=== PATIENT | male | born 1940 | race Caucasian/White ===

== ENCOUNTER 2017-10-04 16:10 | Emergency (ER) | payer OTHER ==
[2017-10-04 17:00] LABS: Basophils % (A) 1 %; Eosinophils # (A) 0.4 k/uL (0-0.7); Eosinophils % (A) 6 %; HCT 39.8 % (39.0-53.0); HGB 13.2 gm/dL (13.0-17.5); Lymphocytes # (A) 1.4 k/uL (1.0-4.8); Lymphocytes % (A) 21 %; MCH 29.7 pg (25.0-35.0); MCHC 33.3 g/dL (31.0-37.0); MCV 89.3 fL (80.0-100.0); Monocytes # (A) 0.4 k/uL (0-1.0); Monocytes % (A) 6 %; Neutrophils # (A) 4.5 k/uL (1.3-7.7); Neutrophils % (A) 66 %; Platelet Count 184 k/uL (150-450); RBC 4.46 m/uL (4.30-5.90); RDW 13.8 % (11.5-15.5); WBC 6.8 k/uL (3.8-10.6)
[2017-10-04 17:08] LABS: Albumin 4.3 g/dL (3.5-5.0); Calcium 9.4 mg/dL (8.4-10.2); Potassium 5.2 mmol/L (3.5-5.1); Total Bilirubin 0.4 mg/dL (0.2-1.3); Total Protein 6.6 g/dL (6.3-8.2)
[2017-10-04 17:09] LABS: Partial Thromboplastin Time 23.6 sec (22.0-30.0); Prothrombin Time 9.8 sec (9.0-12.0)
[2017-10-04 17:11] LABS: Creatine Kinase 109 U/L (55-170)
[2017-10-04 17:23] LABS: Troponin I <0.012 ng/mL (0.000-0.034)
[2017-10-04] MEDS ORDERED: SODIUM CHLORIDE 0.9% 1,000 ML IV STA (17:47)
--- NOTE | 2017-10-04 18:21 | ED ---
General Adult HPI - General Chief complaint: Dizziness Stated complaint: NEAR SYNOPAL EPISODE, HEART Hx Time Seen by Provider: 10/04/17 17:19 Source: patient, RN notes reviewed, old records reviewed Mode of arrival: wheelchair Limitations: no limitations - History of Present Illness Initial comments: This is a 76-year-old male to the ER for evaluation, he presents today for evaluation regarding dizziness. Weakness. Patient was doing some work today while at work than normal. He was walking up hill. Really became very lightheaded and dizzy. Patient admits to being watery is decreased adequate hydration. He denies headache chest pain shortness breath or abdominal pain. At this point patient states his symptoms are completely resolved - Related Data Home Medications Medication Instructions Recorded Confirmed Aspirin 81 mg PO DAILY 12/26/13 12/26/13 Carvedilol [Coreg*] 12.5 mg PO BID 12/26/13 12/26/13 Cholecalciferol [Vitamin D3] 1 tab PO DAILY 12/26/13 12/26/13 Furosemide [Lasix] 40 mg PO DAILY 12/26/13 12/26/13 Lisinopril [Zestril] 20 mg PO DAILY 12/26/13 12/26/13 Nitroglycerin Sl Tabs [Nitrostat] 1 tab SL DIRECTED PRN 12/26/13 12/26/13 Rosuvastatin Calcium [Crestor] 2.5 mg PO DAILY 12/26/13 12/26/13 amLODIPine [Norvasc] 5 mg PO DAILY 12/26/13 12/26/13 glipiZIDE [Glucotrol] 2.5 mg PO BID 12/26/13 12/26/13 Allergies Allergy/AdvReac Type Severity Reaction Status Date / Time No Known Allergies Allergy Verified 10/04/17 16:17 Review of Systems ROS Statement: Those systems with pertinent positive or pertinent negative responses have been documented in the HPI. ROS Other: All systems not noted in ROS Statement are negative. Past Medical History Past Medical History: Diabetes Mellitus, Myocardial Infarction ([place]) Additional Past Medical History / Comment(s): neuropathy, right eye bleed History of Any Multi-Drug Resistant Organisms: None Reported Past Surgical History: Appendectomy, Coronary Bypass/CABG Additional Past Surgical History / Comment(s): right eye Past Psychological History: No Psychological Hx Reported Smoking Status: Former smoker Past Alcohol Use History: Occasional Past Drug Use History: None Reported General Exam Limitations: no limitations General appearance: alert, in no apparent distress Head exam: Present: atraumatic, normocephalic, normal inspection Eye exam: Present: normal appearance, PERRL, EOMI. Absent: scleral icterus, conjunctival injection, periorbital swelling ENT exam: Present: normal exam, mucous membranes dry Neck exam: Present: normal inspection. Absent: tenderness, meningismus, lymphadenopathy Respiratory exam: Present: normal lung sounds bilaterally. Absent: respiratory distress, wheezes, rales, rhonchi, stridor Cardiovascular Exam: Present: regular rate, normal rhythm, normal heart sounds. Absent: systolic murmur, diastolic murmur, rubs, gallop, clicks GI/Abdominal exam: Present: soft, normal bowel sounds. Absent: distended, tenderness, guarding, rebound, rigid Extremities exam: Present: normal inspection, full ROM, normal capillary refill. Absent: tenderness, pedal edema, joint swelling, calf tenderness Back exam: Present: normal inspection Neurological exam: Present: alert, oriented X3, CN II-XII intact Psychiatric exam: Present: normal affect, normal mood Skin exam: Present: warm, dry, intact, normal color. Absent: rash Course Vital Signs 10/04/17 10/04/17 16:14 17:27 Temperature 98.5 F Pulse Rate 67 61 Respiratory 20 18 Rate Blood Pressure 122/67 153/71 O2 Sat by Pulse 97 98 Oximetry - Reevaluation(s) Reevaluation #1: 10/04/17 18:20 Patient given fluid bolus, continues remain asymptomatic Medical Decision Making - Medical Decision Making 76 male the ER for evaluation near syncope, dehydration. Patient hydrated here in the ER and can be discharged home encouraged increased fluid intake - Lab Data Result diagrams: 10/04/17 16:42 10/04/17 16:42 Lab Results 10/04/17 10/04/17 10/04/17 Range/Units 16:42 16:42 16:42 WBC 6.8 (3.8-10.6) k/uL RBC 4.46 (4.30-5.90) m/uL Hgb 13.2 (13.0-17.5) gm/dL Hct 39.8 (39.0-53.0) % MCV 89.3 (80.0-100.0) fL MCH 29.7 (25.0-35.0) pg MCHC 33.3 (31.0-37.0) g/dL RDW 13.8 (11.5-15.5) % Plt Count 184 (150-450) k/uL Neutrophils % 66 % Lymphocytes % 21 % Monocytes % 6 % Eosinophils % 6 % Basophils % 1 % Neutrophils # 4.5 (1.3-7.7) k/uL Lymphocytes # 1.4 (1.0-4.8) k/uL Monocytes # 0.4 (0-1.0) k/uL Eosinophils # 0.4 (0-0.7) k/uL Basophils # 0.0 (0-0.2) k/uL PT (9.0-12.0) sec INR (<1.2) APTT (22.0-30.0) sec Sodium 143 (137-145) mmol/L Potassium 5.2 H (3.5-5.1) mmol/L Chloride 106 (98-107) mmol/L Carbon Dioxide 20 L (22-30) mmol/L Anion Gap 17 mmol/L BUN 74 H (9-20) mg/dL Creatinine 3.20 H (0.66-1.25) mg/dL Est GFR (CKD-EPI)AfAm 21 (>60 ml/min/1.73 sqM) Est GFR (CKD-EPI)NonAf 18 (>60 ml/min/1.73 sqM) Glucose 153 H (74-99) mg/dL Calcium 9.4 (8.4-10.2) mg/dL Total Bilirubin 0.4 (0.2-1.3) mg/dL AST 20 (17-59) U/L ALT 14 L (21-72) U/L Alkaline Phosphatase 65 (38-126) U/L Total Creatine Kinase 109 (55-170) U/L CK-MB (CK-2) 2.0 (0.0-2.4) ng/mL CK-MB (CK-2) Rel Index 1.8 Troponin I <0.012 (0.000-0.034) ng/mL Total Protein 6.6 (6.3-8.2) g/dL Albumin 4.3 (3.5-5.0) g/dL 05/10/18 Range/Units 16:42 WBC (3.8-10.6) k/uL RBC (4.30-5.90) m/uL Hgb (13.0-17.5) gm/dL Hct (39.0-53.0) % MCV (80.0-100.0) fL MCH (25.0-35.0) pg MCHC (31.0-37.0) g/dL RDW (11.5-15.5) % Plt Count (150-450) k/uL Neutrophils % % Lymphocytes % % Monocytes % % Eosinophils % % Basophils % % Neutrophils # (1.3-7.7) k/uL Lymphocytes # (1.0-4.8) k/uL Monocytes # (0-1.0) k/uL Eosinophils # (0-0.7) k/uL Basophils # (0-0.2) k/uL PT 9.8 (9.0-12.0) sec INR 1.0 (<1.2) APTT 23.6 (22.0-30.0) sec Sodium (137-145) mmol/L Potassium (3.5-5.1) mmol/L Chloride (98-107) mmol/L Carbon Dioxide (22-30) mmol/L Anion Gap mmol/L BUN (9-20) mg/dL Creatinine (0.66-1.25) mg/dL Est GFR (CKD-EPI)AfAm (>60 ml/min/1.73 sqM) Est GFR (CKD-EPI)NonAf (>60 ml/min/1.73 sqM) Glucose (74-99) mg/dL Calcium (8.4-10.2) mg/dL Total Bilirubin (0.2-1.3) mg/dL AST (17-59) U/L ALT (21-72) U/L Alkaline Phosphatase (38-126) U/L Total Creatine Kinase (55-170) U/L CK-MB (CK-2) (0.0-2.4) ng/mL CK-MB (CK-2) Rel Index Troponin I (0.000-0.034) ng/mL Total Protein (6.3-8.2) g/dL Albumin (3.5-5.0) g/dL Disposition Clinical Impression: Dehydration, Orthostatic hypotension Disposition: HOME SELF-CARE Condition: Good Instructions: Dizziness (ED), Dehydration (ED) Is patient prescribed a controlled substance at d/c from ED?: No Referrals: [facility],Clinic [Primary Care Provider] - 1-2 days
[2017-10-04] MEDS ORDERED: RX INFO: IV CONTRAST WAS GIVEN 1 EACH MISC MISCELLANE PRN (18:36)
[2017-10-04 19:09] VITALS: PULSE 58; RESP 19
--- NOTE | 2017-10-04 19:14 | XR ---
EXAMINATION TYPE: XR chest 2V DATE OF EXAM: 10/04/2017 COMPARISON: Chest x-ray December 26, 2013 HISTORY: Chest pain. Syncope and weakness. TECHNIQUE: Frontal and lateral views of the chest are obtained. FINDINGS: New sternal wires and mediastinal clips from CABG procedure are identified. There is chroni c parenchymal change without suspicious new focal air space opacity, pleural effusion, or pneumothora x seen. Some eventration right hemidiaphragm is redemonstrated. Patchy left basilar linear scarring a nd/or atelectasis is again seen. The cardiac silhouette size is upper limits of normal currently. T he osseous structures are intact. IMPRESSION: Chronic changes without acute pulmonary process.
[2017-10-04 20:24] VITALS: BP 160/77
--- NOTE | 2017-10-04 20:25 | NM ---
EXAMINATION TYPE: NM pul vent and perfuse DATE OF EXAM: 10/04/2017 COMPARISON: Chest x-ray from earlier today HISTORY: Chest pain TECHNIQUE: Utilizing inhalation of 65.1 mCi Tc 99m DTPA aerosol and intravenous injection of 5.27 mC i of Tc 99m MAA, ventilation and perfusion images are acquired post injection in multiple projections . FINDINGS: Normal radiotracer distribution is noted in the lungs. There is no evidence of mismatched defects. IMPRESSION: No scintigraphic evidence for acute pulmonary embolism.
[2017-10-04 20:26] VITALS: TEMP 97.5
== END 2017-10-04 21:08 | disposition home or self-care (01) ==
LOC: EC 16:10
DX: I95.1 Orthostatic hypotension (principal); E86.0 Dehydration; E11.40 Type 2 diabetes mellitus with diabetic neuropathy, unspecified; I25.2 Old myocardial infarction; Z87.891 Personal history of nicotine dependence; Z79.82 Long term (current) use of aspirin; Z79.84 Long term (current) use of oral hypoglycemic drugs; Z79.899 Other long term (current) drug therapy
CPT/HCPCS: 36415; 93005; 85379; 80053; 82550; 82553; 84484; 85025; 85610; 85730; 71046; 78582; 99284; 96360; A9540; A9567

== ENCOUNTER 2018-02-10 02:51 | Emergency (ER) | payer OTHER ==
[2018-02-10 02:57] VITALS: RESP 16
[2018-02-10] MEDS ORDERED: SODIUM CHLORIDE 0.9% 1,000 ML IV STA (03:07)
[2018-02-10] MEDS ORDERED: DICYCLOMINE 10 MG/ML 2 ML AMP IM STA (03:07)
[2018-02-10] MEDS ORDERED: ONDANSETRON 4 MG/2 ML VIAL IVP STA (03:07)
[2018-02-10 03:48] LABS: Basophils % (A) 0 %; Eosinophils # (A) 0.5 k/uL (0-0.7); Eosinophils % (A) 4 %; HCT 42.3 % (39.0-53.0); HGB 13.5 gm/dL (13.0-17.5); Lymphocytes # (A) 0.7 k/uL (1.0-4.8); Lymphocytes % (A) 6 %; MCH 29.7 pg (25.0-35.0); MCHC 31.8 g/dL (31.0-37.0); MCV 93.3 fL (80.0-100.0); Mean Platelet Volume 6.8; Monocytes # (A) 0.5 k/uL (0-1.0); Monocytes % (A) 4 %; Neutrophils # (A) 10.2 k/uL (1.3-7.7); Neutrophils % (A) 84 %; Platelet Count 204 k/uL (150-450); RBC 4.53 m/uL (4.30-5.90); RDW 13.8 % (11.5-15.5); WBC 12.1 k/uL (3.8-10.6)
--- NOTE | 2018-02-10 03:55 | XR ---
EXAMINATION TYPE: XR KUB DATE OF EXAM: 02/10/2018 COMPARISON: NONE HISTORY: Abdominal pain TECHNIQUE: 2 views FINDINGS: There is no sign of intestinal obstruction or pneumoperitoneum. Fecal pattern is normal. Th ere is no sign of a mass. Lung bases are clear. There are no pathologic calcifications over the kidne ys. IMPRESSION: Nonacute abdomen.
[2018-02-10 03:58] LABS: Albumin 4.3 g/dL (3.5-5.0); Calcium 9.5 mg/dL (8.4-10.2); Potassium 4.8 mmol/L (3.5-5.1); Total Bilirubin 0.7 mg/dL (0.2-1.3); Total Protein 6.9 g/dL (6.3-8.2)
[2018-02-10] MEDS ORDERED: SODIUM CHLORIDE 0.9% 500 ML IV ONE (04:06)
--- NOTE | 2018-02-10 04:08 | ED ---
Nausea/Vomiting/Diarrhea HPI - General Source: patient Mode of arrival: ambulatory Limitations: no limitations <Vicenta Rivera - Last Filed: 02/10/18 18:23> <Kristi Grant - Last Filed: 02/12/18 01:19> - General Chief complaint: Nausea/Vomiting/Diarrhea Stated complaint: poss food poisoning Time Seen by Provider: 02/10/18 03:01 - History of Present Illness Initial comments: 77-year-old male patient presents to the emergency department today for evaluation of vomiting and diarrhea. Patient states that symptoms started around 10 PM this evening. Patient states around 8 PM he did have dinner which included whitefish from a restaurant. Patient states that he has had several episodes of both vomiting and diarrhea since onset at 10. Denies any hematemesis, hematochezia, or melena. Patient states he has had some generalized abdominal cramping. Patient denies any fevers or chills. He denies any sick contacts or recent travel. Patient does have chronic kidney failure and was concerned that he may become dehydrated. Patient denies any recent rash, shortness breath, chest pain, back pain, numbness, tingling, dizziness, weakness, hematuria, dysuria, urinary urgency, urinary frequency, headache, visual changes, or any other complaints. (Vicenta Rivera) - Related Data Home Medications Medication Instructions Recorded Confirmed Aspirin 81 mg PO DAILY 12/26/13 12/26/13 Carvedilol [Coreg*] 12.5 mg PO BID 12/26/13 12/26/13 Cholecalciferol [Vitamin D3] 1 tab PO DAILY 12/26/13 12/26/13 Furosemide [Lasix] 40 mg PO DAILY 12/26/13 12/26/13 Lisinopril [Zestril] 20 mg PO DAILY 12/26/13 12/26/13 Nitroglycerin Sl Tabs [Nitrostat] 1 tab SL DIRECTED PRN 12/26/13 12/26/13 Rosuvastatin Calcium [Crestor] 2.5 mg PO DAILY 12/26/13 12/26/13 amLODIPine [Norvasc] 5 mg PO DAILY 12/26/13 12/26/13 glipiZIDE [Glucotrol] 2.5 mg PO BID 12/26/13 12/26/13 Previous Rx's Medication Instructions Recorded Ondansetron [Zofran ODT] 4 mg PO Q8HR PRN #10 tab 02/10/18 Allergies Allergy/AdvReac Type Severity Reaction Status Date / Time No Known Allergies Allergy Verified 02/10/18 02:57 Review of Systems ROS Other: All systems not noted in ROS Statement are negative. <Vicenta Rivera M - Last Filed: 02/10/18 18:23> ROS Other: All systems not noted in ROS Statement are negative. <Kristi Grant - Last Filed: 02/12/18 01:19> ROS Statement: Those systems with pertinent positive or pertinent negative responses have been documented in the HPI. Past Medical History Past Medical History: Diabetes Mellitus, Myocardial Infarction ([place]) Additional Past Medical History / Comment(s): neuropathy, right eye bleed History of Any Multi-Drug Resistant Organisms: None Reported Past Surgical History: Appendectomy, Coronary Bypass/CABG Additional Past Surgical History / Comment(s): right eye Past Psychological History: No Psychological Hx Reported Smoking Status: Former smoker Past Alcohol Use History: Occasional Past Drug Use History: None Reported <Vicenta Rivera M - Last Filed: 02/10/18 18:23> General Exam Limitations: no limitations General appearance: alert, in no apparent distress, other (This is a well- developed, well-nourished 77-year-old male patient no acute distress. Vital signs upon presentation are temperature 98.3F, pulse 69, respirations 16, blood pressure 134/68, pulse ox 98% on room air.) Eye exam: Present: normal appearance, PERRL, EOMI. Absent: scleral icterus, conjunctival injection, periorbital swelling ENT exam: Present: normal exam, normal oropharynx, mucous membranes moist Respiratory exam: Present: normal lung sounds bilaterally. Absent: respiratory distress, wheezes, rales, rhonchi, stridor Cardiovascular Exam: Present: regular rate, normal rhythm, normal heart sounds. Absent: systolic murmur, diastolic murmur, rubs, gallop, clicks GI/Abdominal exam: Present: soft, normal bowel sounds. Absent: distended, tenderness, guarding, rebound, rigid Neurological exam: Present: alert, oriented X3, CN II-XII intact Psychiatric exam: Present: normal affect, normal mood Skin exam: Present: warm, dry, intact, normal color. Absent: rash <Vicenta Rivera - Last Filed: 02/10/18 18:23> Vital Signs 02/10/18 02/10/18 02:55 05:00 Temperature 98.3 F 97.8 F Pulse Rate 69 70 Respiratory 16 16 Rate Blood Pressure 134/68 133/63 O2 Sat by Pulse 98 98 Oximetry Medical Decision Making - Lab Data Result diagrams: 02/10/18 03:40 02/10/18 03:40 - Radiology Data Radiology results: report reviewed, image reviewed <Vicenta Rivera - Last Filed: 02/10/18 18:23> - Lab Data Result diagrams: 02/10/18 03:40 02/10/18 03:40 <Kristi Grant - Last Filed: 02/12/18 01:19> - Medical Decision Making 77-year-old male patient presented to the emergency department today for a 4 hour history of vomiting and diarrhea. Physical examination was relatively unremarkable. Abdomen was soft and nontender. Patient denied any recent antibiotic use, recent travel, or sick contacts. Patient is concerned that he may have had bad food at a restaurant he was eating. Labs reviewed and did reveal an elevated BUN and creatinine, slightly above his normal range. Labs he has had here previously. He did receive Zofran and Pepcid while in the department, states he is feeling much better upon reevaluation. Did give patient 1500 mL of normal saline. We did discuss possibility of gastroenteritis versus food poisoning, felt to be more gastroenteritis as symptoms started only 2 hours after he had eaten. He is instructed to follow- up with his primary care physician to have repeat labs performed. Return parameters discussed in detail. He verbalizes understanding and agrees with this plan. (Vicenta Rivera) I was available for consultation in the emergency department. The history and physical exam were done by the midlevel provider. I was consulted for this patient's care. I reviewed the case with the midlevel provider and based on their presentation of the patient, I agree with the assessment, medical decision making and plan of care as documented. (Kristi Grant) - Lab Data Lab Results 02/10/18 02/10/18 Range/Units 03:40 03:40 WBC 12.1 H (3.8-10.6) k/uL RBC 4.53 (4.30-5.90) m/uL Hgb 13.5 (13.0-17.5) gm/dL Hct 42.3 (39.0-53.0) % MCV 93.3 (80.0-100.0) fL MCH 29.7 (25.0-35.0) pg MCHC 31.8 (31.0-37.0) g/dL RDW 13.8 (11.5-15.5) % Plt Count 204 (150-450) k/uL Neutrophils % 84 % Lymphocytes % 6 % Monocytes % 4 % Eosinophils % 4 % Basophils % 0 % Neutrophils # 10.2 H (1.3-7.7) k/uL Lymphocytes # 0.7 L (1.0-4.8) k/uL Monocytes # 0.5 (0-1.0) k/uL Eosinophils # 0.5 (0-0.7) k/uL Basophils # 0.0 (0-0.2) k/uL Sodium 143 (137-145) mmol/L Potassium 4.8 (3.5-5.1) mmol/L Chloride 105 (98-107) mmol/L Carbon Dioxide 25 (22-30) mmol/L Anion Gap 13 mmol/L BUN 80 H (9-20) mg/dL Creatinine 3.27 H (0.66-1.25) mg/dL Est GFR (CKD-EPI)AfAm 20 (>60 ml/min/1.73 sqM) Est GFR (CKD-EPI)NonAf 17 (>60 ml/min/1.73 sqM) Glucose 127 H (74-99) mg/dL Calcium 9.5 (8.4-10.2) mg/dL Total Bilirubin 0.7 (0.2-1.3) mg/dL AST 20 (17-59) U/L ALT 17 L (21-72) U/L Alkaline Phosphatase 56 (38-126) U/L Total Protein 6.9 (6.3-8.2) g/dL Albumin 4.3 (3.5-5.0) g/dL Amylase 133 H (30-110) U/L Lipase 71 (23-300) U/L - Radiology Data Two-view x-ray of the abdomen is obtained. There is no sign of intestinal structure pneumoperitoneum. Fecal pattern is normal. There is no sign of a mass. Lung bases are clear. There are no pathologic calcifications over the kidneys. Impression by Dr. Pinzon shows nonacute abdomen. (Vicenta Rivera) Disposition Is patient prescribed a controlled substance at d/c from ED?: No Time of Disposition: 04:24 <Vicenta Rivera - Last Filed: 02/10/18 18:23> <Kristi Grant - Last Filed: 02/12/18 01:19> Clinical Impression: Gastroenteritis Disposition: HOME SELF-CARE Condition: Good Instructions: Gastroenteritis (ED), Acute Nausea and Vomiting (ED), Acute Diarrhea (ED) Additional Instructions: Increase fluids. Start with clear liquid diet and advance as tolerated. Take medications as directed. Follow-up with your primary care physician for recheck in 1-2 days. Return here immediately for any new, worsening, or concerning symptoms. Prescriptions: Ondansetron [Zofran ODT] 4 mg PO Q8HR PRN #10 tab PRN Reason: Nausea Referrals: [facility],Clinic [Primary Care Provider] - 1-2 days
[2018-02-10] MEDS ORDERED: ONDANSETRON 4 MG ODT STARTER PACK 2 TAB BTL PO STA (04:25)
[2018-02-10] MEDS ORDERED: ACETAMINOPHEN ORAL SUSP 160 MG/5 ML CUP PO ONE (04:37)
[2018-02-10] MEDS ORDERED: FAMOTIDINE 20 MG/2 ML VIAL IV STA (04:51)
[2018-02-10 05:01] VITALS: BP 133/63; PULSE 70; TEMP 97.8
== END 2018-02-10 05:01 | disposition home or self-care (01) ==
LOC: EC 02:51
DX: K52.9 Noninfective gastroenteritis and colitis, unspecified (principal); R79.89 Other specified abnormal findings of blood chemistry; I25.2 Old myocardial infarction; E11.40 Type 2 diabetes mellitus with diabetic neuropathy, unspecified; Z87.891 Personal history of nicotine dependence; E11.22 Type 2 diabetes mellitus with diabetic chronic kidney disease; N18.9 Chronic kidney disease, unspecified; Z79.82 Long term (current) use of aspirin; Z79.84 Long term (current) use of oral hypoglycemic drugs; Z79.899 Other long term (current) drug therapy; Z95.1 Presence of aortocoronary bypass graft; Z53.8 Procedure and treatment not carried out for other reasons
CPT/HCPCS: 36415; 80053; 82150; 83690; 85025; 74018; 99284; 96374; 96375; 96361; 96372; J0500; J2405; S0119

== ENCOUNTER 2021-09-26 10:27 | Emergency (ER) | payer OTHER ==
--- NOTE | 2021-09-26 11:02 | ED ---
General Adult HPI - General Chief complaint: Upper Respiratory Infection Stated complaint: Covid+/Fever Time Seen by Provider: 09/26/21 10:36 Source: patient Mode of arrival: ambulatory Limitations: no limitations - History of Present Illness Initial comments: Dictation was produced using [employer] dictation software. please excuse any grammatical, word or spelling errors. Chief Complaint: 80-year-old male in emergency department today for monoclonal antibody infusion. History of Present Illness: 80-year-old male who presents emergency Department monoclonal antibody infusion. 2 days ago he was diagnosed with COVID-19. He states that his symptoms began on the same day. Patient has history of diabetes. Denies any shortness of breath. He has had a cough and mild fevers The ROS documented in this emergency department record has been reviewed and confirmed by me. Those systems with pertinent positive or negative responses have been documented in the HPI. All other systems are other negative and/or noncontributory. PHYSICAL EXAM: General Impression: Alert and oriented x3, not in acute distress HEENT: Normocephalic atraumatic, extra-ocular movements intact, pupils equal and reactive to light bilaterally, mucous membranes moist. Cardiovascular: Heart regular rate and rhythm Chest: Able to complete full sentences, no retractions, no tachypnea Abdomen: abdomen soft, non-tender, non-distended, no organomegaly Musculoskeletal: Pulses present and equal in all extremities, no peripheral edema Motor: no focal deficits noted Neurological: CN II-XII grossly intact, no focal motor or sensory deficits noted Skin: Intact with no visualized rashes Psych: Normal affect and mood ED course: 80-year-old male presents emergency department for monoclonal antibody infusion to treat COVID-19. Vital signs upon arrival are within acceptable limits. Patient hypoxic or showing any signs of respiratory distress. Patient given monoclonal antibodies. He tolerated the infusion well. His observe one hour after infusion. Patient be discharged. - Related Data Home Medications Medication Instructions Recorded Confirmed Aspirin 81 mg PO DAILY 12/26/13 12/26/13 Cholecalciferol [Vitamin D3] 1 tab PO DAILY 12/26/13 12/26/13 Furosemide [Lasix] 40 mg PO DAILY 12/26/13 12/26/13 Nitroglycerin Sl Tabs [Nitrostat] 1 tab SL DIRECTED PRN 12/26/13 12/26/13 Rosuvastatin Calcium [Crestor] 2.5 mg PO DAILY 12/26/13 12/26/13 amLODIPine [Norvasc] 5 mg PO DAILY 12/26/13 12/26/13 carvediloL [Coreg*] 12.5 mg PO BID 12/26/13 12/26/13 glipiZIDE [Glucotrol] 2.5 mg PO BID 12/26/13 12/26/13 lisinopriL [Zestril] 20 mg PO DAILY 12/26/13 12/26/13 Previous Rx's Medication Instructions Recorded Ondansetron [Zofran ODT] 4 mg PO Q8HR PRN #10 tab 02/10/18 Allergies Allergy/AdvReac Type Severity Reaction Status Date / Time No Known Allergies Allergy Verified 09/26/21 10:33 Review of Systems ROS Statement: Those systems with pertinent positive or pertinent negative responses have been documented in the HPI. ROS Other: All systems not noted in ROS Statement are negative. Past Medical History Past Medical History: Diabetes Mellitus, Myocardial Infarction ([place]) Additional Past Medical History / Comment(s): neuropathy, right eye bleed History of Any Multi-Drug Resistant Organisms: None Reported Past Surgical History: Appendectomy, Coronary Bypass/CABG Additional Past Surgical History / Comment(s): right eye Past Psychological History: No Psychological Hx Reported Smoking Status: Never smoker Past Alcohol Use History: Occasional Past Drug Use History: None Reported General Exam Limitations: no limitations Course Vital Signs 09/26/21 09/26/21 09/26/21 10:29 11:14 12:09 Temperature 98.3 F 99.1 F 98.9 F Pulse Rate 59 L 58 L 66 Respiratory 18 12 Rate Blood Pressure 166/71 148/79 160/80 O2 Sat by Pulse 98 95 95 Oximetry Disposition Clinical Impression: Coronavirus infection Disposition: HOME SELF-CARE Condition: Good Instructions (If sedation given, give patient instructions): Coronavirus Disease 2019 (COVID-19) Is patient prescribed a controlled substance at d/c from ED?: No Referrals: [facility],Clinic [Primary Care Provider] - 1-2 days
[2021-09-26] MEDS ORDERED: BEBTELOVIMAB (EUA) 175 MG/2 ML VIAL IV ONE (11:15)
[2021-09-26 11:18] VITALS: RESP 12
[2021-09-26 12:11] VITALS: BP 160/80; PULSE 66; TEMP 98.9
== END 2021-09-26 12:59 | disposition home or self-care (01) ==
LOC: EC 10:27
DX: U07.1 COVID-19 (principal); E11.9 Type 2 diabetes mellitus without complications; I25.2 Old myocardial infarction
CPT/HCPCS: 99283; Q0222

== ENCOUNTER 2022-04-07 12:23 | Emergency (ER) | payer OTHER ==
[2022-04-07] MEDS ORDERED: LIDOCAINE 1%-EPI 1:100,000 20 ML VIAL SQ STA (12:29)
--- NOTE | 2022-04-07 12:44 | ED ---
General Adult HPI - General Chief complaint: Fall Stated complaint: fall Time Seen by Provider: 04/07/22 12:25 Source: EMS Mode of arrival: EMS Limitations: no limitations - History of Present Illness Initial comments: Dictation was produced using [facility] dictation software. please excuse any grammatical, word or spelling errors. Chief Complaint: 81-year-old male presents to the emergency department after fall History of Present Illness: Patient is an 81-year-old male he states that he stepped on a noman. He lost his balance and his legs swung out from under him. He fell backward and struck his head on some tables. He suffered a laceration to the posterior scalp. Patient denies any neck pain. No extremity, chest or abdominal pain. Patient has not taken and a correlation medications. The ROS documented in this emergency department record has been reviewed and confirmed by me. Those systems with pertinent positive or negative responses have been documented in the HPI. All other systems are other negative and/or n oncontributory. PHYSICAL EXAM: General Impression: Alert and oriented x3, not in acute distress HEENT: 5 cm scalp laceration to the occiput, extra-ocular movements intact, pupils equal and reactive to light bilaterally, mucous membranes moist. Cardiovascular: Heart regular rate and rhythm Chest: Able to complete full sentences, no retractions, no tachypnea Abdomen: abdomen soft, non-tender, non-distended, no organomegaly Musculoskeletal: Pulses present and equal in all extremities, no peripheral edema Motor: no focal deficits noted Neurological: CN II-XII grossly intact, no focal motor or sensory deficits noted Skin: Intact with no visualized rashes Psych: Normal affect and mood ED course: 81-year-old male presents emergency department for scalp laceration after suffering a fall. Vital signs upon arrival are within acceptable limits. Patient's tetanus is up-to-date. Laboratory evaluation obtained. CBC unremarkable. Creatinine is 2.88. This is lower than patient's usual baseline. Computed tomography scan of the head and C-spine is unremarkable. Laceration was repaired with lu. Patient observed in emergency department for one hour. Reevaluate at bedside 1:30 PM found with stable medical condition. Patient told to have lu removed in 7 days. Return precautions discussed. Patient discharge. - Related Data Home Medications Medication Instructions Recorded Confirmed Aspirin 81 mg PO DAILY 12/26/13 12/26/13 Cholecalciferol [Vitamin D3] 1 tab PO DAILY 12/26/13 12/26/13 Furosemide [Lasix] 40 mg PO DAILY 12/26/13 12/26/13 Nitroglycerin Sl Tabs [Nitrostat] 1 tab SL DIRECTED PRN 12/26/13 12/26/13 Rosuvastatin Calcium [Crestor] 2.5 mg PO DAILY 12/26/13 12/26/13 amLODIPine [Norvasc] 5 mg PO DAILY 12/26/13 12/26/13 carvediloL [Coreg*] 12.5 mg PO BID 12/26/13 12/26/13 glipiZIDE [Glucotrol] 2.5 mg PO BID 12/26/13 12/26/13 lisinopriL [Zestril] 20 mg PO DAILY 12/26/13 12/26/13 Previous Rx's Medication Instructions Recorded Ondansetron [Zofran ODT] 4 mg PO Q8HR PRN #10 tab 02/10/18 Allergies Allergy/AdvReac Type Severity Reaction Status Date / Time No Known Allergies Allergy Verified 04/07/22 12:28 Review of Systems ROS Statement: Those systems with pertinent positive or pertinent negative responses have been documented in the HPI. ROS Other: All systems not noted in ROS Statement are negative. Past Medical History Past Medical History: Diabetes Mellitus, Myocardial Infarction ([place]) Additional Past Medical History / Comment(s): neuropathy, right eye bleed History of Any Multi-Drug Resistant Organisms: None Reported Past Surgical History: Appendectomy, Coronary Bypass/CABG Additional Past Surgical History / Comment(s): right eye Past Psychological History: No Psychological Hx Reported Smoking Status: Never smoker Past Alcohol Use History: Occasional Past Drug Use History: None Reported General Exam Limitations: no limitations Course Vital Signs 04/07/22 12:24 Temperature 97.2 F L Respiratory 16 Rate Blood Pressure 187/95 O2 Sat by Pulse 99 Oximetry Procedures - Laceration Laceration #1 Consent Obtained: verbal consent Indication: laceration Site: scalp Description: linear (5 cm) Anesthetic Used: lidocaine 1%, with epi Anesthesia Technique: local infiltration Size of Sutures: other (lu) Technique: other Medical Decision Making - Lab Data Result diagrams: 04/07/22 12:58 04/07/22 12:58 Lab Results 04/07/22 04/07/22 Range/Units 12:58 12:58 WBC 7.0 (3.8-10.6) k/uL RBC 4.12 L (4.30-5.90) m/uL Hgb 12.8 L (13.0-17.5) gm/dL Hct 38.3 L (39.0-53.0) % MCV 92.8 (80.0-100.0) fL MCH 31.1 (25.0-35.0) pg MCHC 33.5 (31.0-37.0) g/dL RDW 13.6 (11.5-15.5) % Plt Count 182 (150-450) k/uL MPV 8.5 Neutrophils % 58 % Lymphocytes % 25 % Monocytes % 6 % Eosinophils % 9 % Basophils % 1 % Neutrophils # 4.0 (1.3-7.7) k/uL Lymphocytes # 1.7 (1.0-4.8) k/uL Monocytes # 0.4 (0-1.0) k/uL Eosinophils # 0.6 (0-0.7) k/uL Basophils # 0.1 (0-0.2) k/uL Sodium 139 (137-145) mmol/L Potassium 5.2 H (3.5-5.1) mmol/L Chloride 110 H (98-107) mmol/L Carbon Dioxide 23 (22-30) mmol/L Anion Gap 6 mmol/L BUN 54 H (9-20) mg/dL Creatinine 2.88 H (0.66-1.25) mg/dL Est GFR (CKD-EPI)AfAm 23 (>60 ml/min/1.73 sqM) Est GFR (CKD-EPI)NonAf 20 (>60 ml/min/1.73 sqM) Glucose 96 (74-99) mg/dL Calcium 9.0 (8.4-10.2) mg/dL Disposition Clinical Impression: Scalp laceration Disposition: HOME SELF-CARE Condition: Fair Instructions (If sedation given, give patient instructions): Fall Prevention for Older Adults (ED) Additional Instructions: Staple removal in 7 days Is patient prescribed a controlled substance at d/c from ED?: No Referrals: [facility],Clinic [Primary Care Provider] - 1-2 days Time of Disposition: 13:26
[2022-04-07 13:04] LABS: Basophils # (A) 0.1 k/uL (0-0.2); Basophils % (A) 1 %; Eosinophils # (A) 0.6 k/uL (0-0.7); Eosinophils % (A) 9 %; HCT 38.3 % (39.0-53.0); HGB 12.8 gm/dL (13.0-17.5); Lymphocytes # (A) 1.7 k/uL (1.0-4.8); Lymphocytes % (A) 25 %; MCH 31.1 pg (25.0-35.0); MCHC 33.5 g/dL (31.0-37.0); MCV 92.8 fL (80.0-100.0); Mean Platelet Volume 8.5; Monocytes # (A) 0.4 k/uL (0-1.0); Monocytes % (A) 6 %; Neutrophils % (A) 58 %; Platelet Count 182 k/uL (150-450); RBC 4.12 m/uL (4.30-5.90); RDW 13.6 % (11.5-15.5)
--- NOTE | 2022-04-07 13:23 | CT ---
EXAMINATION TYPE: CT brain abdirizak wo con DATE OF EXAM: 04/07/2022 COMPARISON: 11/30/2015 INDICATION: Fall, head laceration DLP: 1448.1 mGycm, Automated exposure control for dose reduction was used. CONTRAST: None CT of the brain is performed utilizing 3 mm thick sections through the posterior fossa and 3 mm thick sections through the remaining calvarium. Study is performed within 24 hours of arrival to the hosp ital. No abnormal hyperdensity is present to suggest an acute intracranial hemorrhage. No mass lesion is evident. No acute infarcts are evident. Mild prominence of the ventricles and sulci related to age related atrophy. Paranasal sinuses and mas toid air cells within the [id number] are clear. IMPRESSIONS: 1. Age-related atrophy. No acute intracranial process. Follow-up MRI can be performed as clinically indicated.
[2022-04-07 13:25] LABS: Potassium 5.2 mmol/L (3.5-5.1)
[2022-04-07 13:38] VITALS: BP 153/84; PULSE 68; RESP 18; TEMP 97.5
== END 2022-04-07 13:38 | disposition home or self-care (01) ==
LOC: EC 12:23
DX: S01.01XA Laceration without foreign body of scalp, initial encounter (principal); E11.9 Type 2 diabetes mellitus without complications; I25.2 Old myocardial infarction; Z79.82 Long term (current) use of aspirin; Z79.899 Other long term (current) drug therapy; W18.09XA Striking against other object with subsequent fall, initial encounter
CPT/HCPCS: 12002; 36415; 70450; 72125; 80048; 85025; 99284

== ENCOUNTER 2022-05-15 15:52 | Observation (INO) | payer OTHER ==
[2022-05-15 16:15] LABS: Glucose,Whole Blood 89 mg/dL (70-110)
--- NOTE | 2022-05-15 16:28 | CT ---
EXAMINATION TYPE: CT brain wo con for TPA DATE OF EXAM: 05/15/2022 COMPARISON: 04/07/2022 INDICATION: Neuro deficits, speech impairment. Code stroke DLP: 1133.6 mGycm, Automated exposure control for dose reduction was used. CONTRAST: None CT of the brain is performed utilizing 3 mm thick sections through the posterior fossa and 3 mm thick sections through the remaining calvarium. Study is performed within 24 hours of arrival to the hosp ital. No abnormal hyperdensity is present to suggest an acute intracranial hemorrhage. No mass lesion is evident. No acute infarcts are evident. Old lacunar infarct report, Tanmay space in inferior left basal ganglia may be present. Ventricles and sulci are appropriate for the patient age. Paranasal sinuses and mastoid air cells within the [id number] are clear. IMPRESSIONS: 1. No acute intracranial process. Follow-up MRI can be performed as clinically indicated.
--- NOTE | 2022-05-15 16:29 | ED ---
Neuro HPI - General Chief Complaint: Neuro Symptoms/Deficit Stated Complaint: Headache,confusion Time Seen by Provider: 05/15/22 16:03 Source: patient Mode of arrival: ambulatory Limitations: no limitations - History of Present Illness Is the patient presenting with stroke symptoms?: Yes Initial Comments: This 81-year-old male presents as a possible stroke. He relates that at 2:45 PM today he apparently was in a session [facility]. He started having problems with expressive aphasia. He states that he was directed to the emergency department. His symptoms have now resolved and he is seen at a pproximately 4 PM. He also complains of some shakiness as well as a left-sided headache. He denies any previous similar incidents. There is no history of TIA or CVA in the past. He denies any numbness or paresthesias or weakness of extremities. She denies any problems with vision or coordination. He drove to the emergency department and is able to ambulate without any difficulty. He does relate a history of previous coronary artery disease with CABG as well as diabetes. He apparently was seeing a speech therapist as he has had surgery on his throat in the past. He states that most of his care is through the [place]. He is on aspirin and an mother unknown blood thinner which he cannot remember the name. No other complaints or modifying factors. - Related Data Home Medications: Home Medications Medication Instructions Recorded Confirmed Aspirin 81 mg PO DAILY 12/26/13 12/26/13 Cholecalciferol [Vitamin D3] 1 tab PO DAILY 12/26/13 12/26/13 Furosemide [Lasix] 40 mg PO DAILY 12/26/13 12/26/13 Nitroglycerin Sl Tabs [Nitrostat] 1 tab SL DIRECTED PRN 12/26/13 12/26/13 Rosuvastatin Calcium [Crestor] 2.5 mg PO DAILY 12/26/13 12/26/13 amLODIPine [Norvasc] 5 mg PO DAILY 12/26/13 12/26/13 carvediloL [Coreg*] 12.5 mg PO BID 12/26/13 12/26/13 glipiZIDE [Glucotrol] 2.5 mg PO BID 12/26/13 12/26/13 lisinopriL [Zestril] 20 mg PO DAILY 08/01/14 08/01/14 Previous Rx's Medication Instructions Recorded Ondansetron [Zofran ODT] 4 mg PO Q8HR PRN #10 tab 02/10/18 Allergies/Adverse Reactions: Allergies Allergy/AdvReac Type Severity Reaction Status Date / Time No Known Allergies Allergy Verified 05/15/22 16:01 Review of Systems ROS Statement: Those systems with pertinent positive or pertinent negative responses have been documented in the HPI. ROS Other: All systems not noted in ROS Statement are negative. General Exam - General Exam Comments Initial Comments: GENERAL: The patient is well nourished and well hydrated. VITAL SIGNS: Heart rate, blood pressure, respiratory rate reviewed as recorded in nurse's notes. EYES: Pupils are round and reactive. Extraocular movements are intact. No conjunctival / lid redness or swelling. ENT: No external evidence of injury, swelling, or ecchymosis. Airway is patent. Throat is clear. NECK: Nontender. No swelling or evidence of injury. No subcutaneous emphysema. T rachea is midline. No thyroid mass. HEART: Regular rate and rhythm. Good peripheral pulses. LUNGS/CHEST: Breath sounds clear and equal bilaterally. No rales, rhonchi, or wheezes. No ecchymosis, subcutaneous emphysema, or tenderness. ABDOMEN: Abdomen soft without tenderness. No palpable masses or organomegaly. No peritoneal signs. No abdominal wall swelling or ecchymosis. EXTREMITIES: No extremity tenderness. Normal muscle tone and function. No thoracolumbar tenderness. NEUROLOGIC: Sensation is grossly intact. Cranial nerve exam reveals face is symmetrical, tongue is midline, speech is clear. No expressive aphasia is identified. Strength is intact for upper and lower extremities. NIH stroke scale of 0. SKIN: No abrasions or ecchymosis is noted. No induration or masses noted. PSYCHIATRIC: Alert and oriented. Appropriate behavior and judgment. Limitations: no limitations Stroke MDM - Lab Data Result diagrams: 05/15/22 16:13 05/15/22 16:13 Lab Results 05/15/22 05/15/22 05/15/22 Range/Units 16:11 16:13 16:13 WBC 7.0 (3.8-10.6) k/uL RBC 4.41 (4.30-5.90) m/uL Hgb 13.5 (13.0-17.5) gm/dL Hct 41.2 (39.0-53.0) % MCV 93.5 (80.0-100.0) fL MCH 30.6 (25.0-35.0) pg MCHC 32.7 (31.0-37.0) g/dL RDW 13.5 (11.5-15.5) % Plt Count 186 (150-450) k/uL MPV 7.5 Neutrophils % 56 % Lymphocytes % 29 % Monocytes % 6 % Eosinophils % 6 % Basophils % 0 % Neutrophils # 3.9 (1.3-7.7) k/uL Lymphocytes # 2.0 (1.0-4.8) k/uL Monocytes # 0.4 (0-1.0) k/uL Eosinophils # 0.4 (0-0.7) k/uL Basophils # 0.0 (0-0.2) k/uL PT 9.9 (9.0-12.0) sec INR 0.9 (<1.2) APTT 24.8 (22.0-30.0) sec Sodium (137-145) mmol/L Potassium (3.5-5.1) mmol/L Chloride (98-107) mmol/L Carbon Dioxide (22-30) mmol/L Anion Gap mmol/L BUN (9-20) mg/dL Creatinine (0.66-1.25) mg/dL Est GFR (CKD-EPI)AfAm (>60 ml/min/1.73 sqM) Est GFR (CKD-EPI)NonAf (>60 ml/min/1.73 sqM) Glucose (74-99) mg/dL POC Glucose (mg/dL) 89 (70-110) mg/dL POC Glu Oil Expeller Operator ID Rick Morris Calcium (8.4-10.2) mg/dL Total Bilirubin (0.2-1.3) mg/dL AST (17-59) U/L ALT (4-49) U/L Alkaline Phosphatase (38-126) U/L Troponin I (0.000-0.034) ng/mL Total Protein (6.3-8.2) g/dL Albumin (3.5-5.0) g/dL 05/15/22 05/15/22 Range/Units 16:13 16:13 WBC (3.8-10.6) k/uL RBC (4.30-5.90) m/uL Hgb (13.0-17.5) gm/dL Hct (39.0-53.0) % MCV (80.0-100.0) fL MCH (25.0-35.0) pg MCHC (31.0-37.0) g/dL RDW (11.5-15.5) % Plt Count (150-450) k/uL MPV Neutrophils % % Lymphocytes % % Monocytes % % Eosinophils % % Basophils % % Neutrophils # (1.3-7.7) k/uL Lymphocytes # (1.0-4.8) k/uL Monocytes # (0-1.0) k/uL Eosinophils # (0-0.7) k/uL Basophils # (0-0.2) k/uL PT (9.0-12.0) sec INR (<1.2) APTT (22.0-30.0) sec Sodium 139 (137-145) mmol/L Potassium 4.5 (3.5-5.1) mmol/L Chloride 107 (98-107) mmol/L Carbon Dioxide 26 (22-30) mmol/L Anion Gap 6 mmol/L BUN 48 H (9-20) mg/dL Creatinine 2.68 H (0.66-1.25) mg/dL Est GFR (CKD-EPI)AfAm 25 (>60 ml/min/1.73 sqM) Est GFR (CKD-EPI)NonAf 21 (>60 ml/min/1.73 sqM) Glucose 99 (74-99) mg/dL POC Glucose (mg/dL) (70-110) mg/dL POC Glu Oil Expeller Operator ID Calcium 8.9 (8.4-10.2) mg/dL Total Bilirubin 0.7 (0.2-1.3) mg/dL AST 25 (17-59) U/L ALT 14 (4-49) U/L Alkaline Phosphatase 74 (38-126) U/L Troponin I <0.012 (0.000-0.034) ng/mL Total Protein 7.0 (6.3-8.2) g/dL Albumin 4.4 (3.5-5.0) g/dL - NIH Stroke Scale 1a. Level of Consciousness: (0) alert 1b. LOC Questions: (0) answers correctly 1c. LOC Commands: (0) performs tasks correctly 2. Best Gaze: (0) normal 3. Visual: (0) no visual loss 4. Facial Palsy: (0) normal symmetrical movement 5a. Motor Arm Left: (0) no drift 5b. Motor Arm Right: (0) no drift 6a. Motor Leg Left: (0) no drift 6b. Motor Leg Right: (0) no drift 7. Limb Ataxia: (0) absent 8. Sensory: (0) normal 9. Best Language: (0) no aphasia 10. Dysarthria: (0) normal 11. Extinction/Inattention: (0) no abnormality - Medical Decision Making The patient was seen and examined immediately upon arrival. He is placed on a dental assisting instructor and no ectopy is identified. His EKG shows a normal sinus rhythm at a rate of 68 with occasional sinus arrhythmia. There is no acute ST-T wave changes identified. The MS intervals 191, QRS duration is 107, and the QTC intervals 433. Case is discussed with the interventional neurologist and they are agreeable with the noncontrasted computed tomography scan of the brain. The patient also relates that he has stage IV renal failure. He is not on dialysis yet but states that he is on the verge of dialysis. Contrasted computed tomography scan therefore is held at this time due to his history of renal failure. The computed tomography scan of the brain does not show any acute processes. The laboratory does show elevation of his renal function studies which is chronic for him. He had a chest x-ray which is negative. It is felt as though the patient would require admission for further workup of the TIA. He is agreeable with this plan. He is given an aspirin. Case is discussed with internal medicine. Past Medical History Past Medical History: Diabetes Mellitus, Myocardial Infarction ([place]) Additional Past Medical History / Comment(s): neuropathy, right eye bleed History of Any Multi-Drug Resistant Organisms: None Reported Past Surgical History: Appendectomy, Coronary Bypass/CABG Additional Past Surgical History / Comment(s): right eye Past Psychological History: No Psychological Hx Reported Smoking Status: Never smoker Past Alcohol Use History: Occasional Past Drug Use History: None Reported Course Vital Signs 05/15/22 05/15/22 15:58 17:01 Temperature 98.2 F Pulse Rate 69 68 Respiratory 20 18 Rate Blood Pressure 197/100 183/99 O2 Sat by Pulse 98 96 Oximetry Disposition Clinical Impression: TIA (transient ischemic attack), Hypertension, Cephalgia, ESRF (end stage renal failure), Diabetes Disposition: ADMITTED IP TO THIS HOSP Condition: Good Is patient prescribed a controlled substance at d/c from ED?: No Referrals: [facility],Clinic [Primary Care Provider] - 1-2 days Time of Disposition: 17:41 Decision Date: 05/15/22 Decision Time: 17:41
[2022-05-15 16:31] LABS: HCT 41.2 % (39.0-53.0); HGB 13.5 gm/dL (13.0-17.5); Lymphocytes % (A) 29 %; MCH 30.6 pg (25.0-35.0); MCHC 32.7 g/dL (31.0-37.0); MCV 93.5 fL (80.0-100.0); Mean Platelet Volume 7.5; Neutrophils % (A) 56 %; Platelet Count 186 k/uL (150-450); RBC 4.41 m/uL (4.30-5.90); RDW 13.5 % (11.5-15.5)
[2022-05-15 16:32] LABS: Basophils % (A) 0 %; Eosinophils # (A) 0.4 k/uL (0-0.7); Eosinophils % (A) 6 %; Monocytes # (A) 0.4 k/uL (0-1.0); Monocytes % (A) 6 %; Neutrophils # (A) 3.9 k/uL (1.3-7.7)
--- NOTE | 2022-05-15 16:34 | XR ---
EXAMINATION TYPE: XR chest 2V DATE OF EXAM: 05/15/2022 COMPARISON: 10/04/2017 INDICATION: Altered mental status TECHNIQUE: Frontal and lateral views of the chest are obtained. FINDINGS: The heart size is normal. The pulmonary vasculature is normal. The lungs are clear. Sternotomy wires are in the midline IMPRESSION: 1. No acute pulmonary process.
[2022-05-15 16:50] LABS: Albumin 4.4 g/dL (3.5-5.0); Calcium 8.9 mg/dL (8.4-10.2); INR 0.9 (<1.2); Partial Thromboplastin Time 24.8 sec (22.0-30.0); Potassium 4.5 mmol/L (3.5-5.1); Prothrombin Time 9.9 sec (9.0-12.0); Total Bilirubin 0.7 mg/dL (0.2-1.3)
[2022-05-15] MEDS ORDERED: ASPIRIN 81 MG PO STA (17:42)
--- NOTE | 2022-05-15 20:09 | US ---
EXAMINATION TYPE: US carotid duplex BILAT DATE OF EXAM: 05/15/2022 COMPARISON: NONE CLINICAL HISTORY: Stenosis. stenosis TECHNIQUE: Carotid duplex ultrasound examination. Indirect Doppler criteria was utilized. FINDINGS: EXAM MEASUREMENTS: RIGHT: Peak Systolic Velocity (PSV) cm/sec ----- Right CCA: 60.9 ----- Right ICA: 65.8 ----- Right ECA: 122.0 ICA/CCA ratio: 1.1 RIGHT: End Diastole cm/sec ----- Right CCA: 14.4 ----- Right ICA: 23.0 ----- Right ECA: 7.7 LEFT: Peak Systolic Velocity (PSV) cm/sec ----- Left CCA: 87.7 ----- Left ICA: 129.9 ----- Left ECA: 82.2 ICA/CCA ratio: 1.5 LEFT: End Diastole cm/sec ----- Left CCA: 15.7 ----- Left ICA: 27.6 ----- Left ECA: 7.9 VERTEBRALS (direction of flow): Right Vertebral: Antegrade Left Vertebral: Antegrade Rhythm: Normal GRADE SCHOOL TEACHER NOTES: Plaque seen throughout left CCA and bulb. Slightly elevated left ICA velocity. Minal que seen in right bulb. IMPRESSION: 1. 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 2. Less than 50% stenosis of the right carotid bifurcation. Criteria for Assigning % of Stenosis / Diameter reduction (Estimation based on the indirect measurements of the internal carotid artery velocities (ICA PSV). 1. Normal (no stenosis)=ICA PSV < 125 cm/s: ratio < 2.0: ICA EDV<40 cm/s. 2. Less than 50% stenosis=ICA PSV < 125 cm/s: ratio < 2.0: ICA EDV<40 cm/s. 3. 50 to 69% stenosis=ICA PSV of 125 to 230 cm/s: ration 2.0 ? 4.0: ICA EDV 40-100 cm/s. 4. Greater than 70% stenosis to near occlusion= ICA PSV > 230 cm/s: ratio > 4.0: ICA EDV > 100 cm/s. 5. Near occlusion= ICA PSV velocities may be low or undetectable: variable ratio and ICA EDV. 6. Total occlusion=unable to detect flow.
[2022-05-15] MEDS ORDERED: FAMOTIDINE 20 MG TAB PO SCH (21:00)
[2022-05-15] MEDS ORDERED: NON FORMULARY DRUG (Fluorouracil [Efudex] 40 GM Cream..G.) TOPICAL PRN (21:28)
[2022-05-15] MEDS ORDERED: NON FORMULARY DRUG (Urea 20% Cream 1 APPLIC) TOPICAL PRN (21:28)
[2022-05-15 23:24] LABS: Glucose,Whole Blood 153 mg/dL (70-110)
--- NOTE | 2022-05-16 02:10 | P.HPIM ---
History of Present Illness H&P Date: 05/15/22 The patient is an 81-year-old male with a PMH of type II DM, BPH, hypertension, hyperlipidemia, chronic kidney disease stage IV, and recently resected laryngeal carcinoma who was sent to the emergency room from his speech therapist's office with concerns for stroke. The patient states that he is currently undergoing speech therapy after the resection of his malignancy, and was having a regular session earlier today at around 2:45 PM when suddenly his speech became garbled. This was immediately followed by sharp left lateral headache, both of which lasted around 15 minutes. After that time, his symptoms completely resolved and he returned to his baseline. He denied experiencing facial asymmetry, numbness, weakness, tingling, or dizziness. He also denied any visual complaints or gait abnormalities. Denies a history of CVA or TIA in the past. The patient reports a history of coronary artery disease status post CABG in the past. CT brain in the emergency room was unremarkable with EKG showing sinus rhythm with sinus arrhythmia at 60 bpm with inferior Q waves. Carotid Dopplers re vealed a 50-69% stenosis of the left carotid bifurcation with less than 50% stenosis of the right carotid bifurcation. Chest x-ray was unremarkable. Laboratory evaluation was remarkable for creatinine of 2.68 with troponin less than 0.012. Review of systems: Pertinent positives and negatives as discussed in HPI, a complete review of systems was performed and all other systems are negative. Physical examination: General: non toxic, no distress, appears at stated age, overweight Derm: no unusual rashes/lesions, warm Head: atraumatic, normocephalic, symmetric Eyes: EOMI, no lid lag, anicteric sclera, pupils equal round reactive to light ENT: Nose and ears atraumatic Neck: No cervical lymphadenopathy, trachea midline, supple Mouth: no lip lesion, mucus membranes moist Cardiovascular: S1S2 reg, no murmur, positive dorsalis pedis pulse bilateral, no edema Lungs: CTA bilateral, no rhonchi, no rales, no accessory muscle use Abdominal: soft, nontender to palpation, no guarding Ext: muscle strength 5 out of 5 in all 4 extremities grossly, no gross muscle atrophy, no contractures, Neuro: CN II-XI grossly intact, no gross focal neuro deficits, no outstretched hand tremor Psych: Alert, oriented, appropriate affect Assessment/plan Aphasia, suspected TIA -Neuro checks -Echocardiogram -Neurology consulted -Continue with aspirin, statin -Speech therapy consulted -Cardiac monitoring Chronic conditions: Type II DM, hypertension, hyperlipidemia, chronic kidney disease -Continue with home medications -Insulin sliding scale blood glucose monitoring DVT prophylaxis -Heparin subcu The patient is admitted with an anticipated less than 2 midnight stay for evaluation of TIA. CODE STATUS: Full Code Discussed with: Patient Anticipated discharge date: in am Anticipated discharge place: Home Past Medical History Past Medical History: Diabetes Mellitus, Myocardial Infarction ([place]) Additional Past Medical History / Comment(s): neuropathy, right eye bleed History of Any Multi-Drug Resistant Organisms: None Reported Past Surgical History: Appendectomy, Coronary Bypass/CABG Additional Past Surgical History / Comment(s): right eye Past Psychological History: No Psychological Hx Reported Smoking Status: Never smoker Past Alcohol Use History: Occasional Past Drug Use History: None Reported - Past Family History Mother Family Medical History: Diabetes Mellitus Father Family Medical History: Cancer Additional Family Medical History / Comment(s): LUNG CANCER Medications and Allergies Home Medications Medication Instructions Recorded Confirmed Type glipiZIDE [Glucotrol] 2.5 mg PO AC-BID 12/26/13 05/15/22 History Aspirin EC [Ecotrin Low Dose] 81 mg PO DAILY 05/15/22 05/15/22 History Calcipotriene [Dovonex] 1 applic TOPICAL BID 05/15/22 05/15/22 History Calcium Acetate [Phoslo] 667 mg PO TID-W/MEALS 05/15/22 05/15/22 History Cholecalciferol [Vitamin D3 (25 25 mcg PO MOWEFR 05/15/22 05/15/22 History Mcg = 1000 Iu)] Famotidine 40 mg PO BID 05/15/22 05/15/22 History Finasteride [Proscar] 5 mg PO DAILY 05/15/22 05/15/22 History Fluoride (Sodium) [Sodium Fluoride] 1 applic DENTAL BID 05/15/22 05/15/22 History Fluticasone Nasal [place] [Flonase 1 spr EA NOSTRIL BID 05/15/22 05/15/22 History Nasal [place]] Isosorbide Mononitrate ER [Imdur] 60 mg PO DAILY 05/15/22 05/15/22 History Mupirocin 2% Oint [Bactroban 2% 1 applic TOPICAL BID 05/15/22 05/15/22 History Oint] Omeprazole 40 mg PO DAILY 05/15/22 05/15/22 History Polyvinyl Alcohol/Povidone [Clear 1 drop BOTH EYES 5XD 05/15/22 05/15/22 History Eyes Natural Tears Drop] Refresh Liquigel 1 drop BOTH EYES HS 05/15/22 05/15/22 History Rosuvastatin [Crestor] 10 mg PO DAILY 05/15/22 05/15/22 History Tamsulosin [Flomax] 0.4 mg PO HS 05/15/22 05/15/22 History Triamcinolone 0.1% Ointment 1 applic TOPICAL BID PRN 05/15/22 05/15/22 History [Kenalog 0.1% Ointment] Urea 20% Cream 1 applic TOPICAL DAILY PRN 05/15/22 05/15/22 History carvediloL [Coreg] 6.25 mg PO BID 05/15/22 05/15/22 History fluorouraciL [Efudex] 1 applic TOPICAL BID PRN 05/15/22 05/15/22 History hydrALAZINE HCL 20 mg PO BID 05/15/22 05/15/22 History lisinopriL 2.5 mg PO DAILY 05/15/22 05/15/22 History Allergies Allergy/AdvReac Type Severity Reaction Status Date / Time pravastatin [From Pravachol] [facility]ergy Per [facility] Verified 05/15/22 19:10 records Physical Exam Vitals: Vital Signs Temp Pulse Resp BP Pulse Ox 05/15/22 20:21 82 16 188/92 98 05/15/22 17:01 68 18 183/99 96 05/15/22 15:58 98.2 F 69 20 197/100 98 Intake and Output 05/15/22 05/15/22 05/15/22 06:59 14:59 22:59 Other: Weight 84.822 kg Results CBC & Chem 7: 05/15/22 16:13 05/15/22 16:13 Labs: Abnormal Lab Results - Last 24 Hours (Table) 05/15/22 Range/Units 16:13 BUN 48 H (9-20) mg/dL Creatinine 2.68 H (0.66-1.25) mg/dL
[2022-05-16] MEDS: HEPARIN SODIUM,PORCINE/PF 5,000 UNIT/0.5 ML SYRINGE SQ SCH ×4 (02:45→23:10)
[2022-05-16 06:21] LABS: Glucose,Whole Blood 90 mg/dL (70-110)
[2022-05-16] MEDS: CALCIUM ACETATE 667 MG TAB PO SCH ×3 (07:02→16:17)
[2022-05-16] MEDS: ARTIFICIAL TEARS-HYPROMELLOSE DROPS 15 ML BTL BOTH EYES SCH ×4 (07:02→20:41)
[2022-05-16] MEDS: carvediloL 6.25 MG TAB PO SCH ×2 (07:02→16:17)
[2022-05-16] MEDS: INSULIN ASPART (NovoLOG) 100 UNIT/ML VIAL SQ SCH ×4 (07:03→20:46)
[2022-05-16] MEDS ORDERED: TRIAMCINOLONE ACET 0.1% OINTMENT 15 GM TUBE TOPICAL PRN (09:00)
[2022-05-16] MEDS ORDERED: ASPIRIN 325 MG TAB PO SCH (09:00)
[2022-05-16] MEDS ORDERED: FAMOTIDINE 20 MG TAB PO SCH (09:00)
[2022-05-16] MEDS ORDERED: NON FORMULARY DRUG (Rosuvastatin 20 MG Tablet) PO SCH (09:00)
[2022-05-16] MEDS: PANTOPRAZOLE 40 MG TABLET PO SCH (09:34)
[2022-05-16] MEDS: ISOSORBIDE MONONITRATE ER 60 MG TAB.ER.24H PO SCH (09:34)
[2022-05-16] MEDS: hydrALAZINE HCL 10 MG TAB PO SCH ×2 (09:34→20:44)
[2022-05-16] MEDS: FINASTERIDE 5 MG TAB PO SCH (09:35)
[2022-05-16] MEDS: SODIUM FLUORIDE MUCOUS MEM SCH ×2 (09:38→20:43)
[2022-05-16] MEDS: CALCIPOTRIENE TOPICAL SCH ×2 (09:38→20:43)
--- NOTE | 2022-05-16 10:09 | CA ---
Transthoracic Echo Report Name: Rick Mcclellan Age: 81 Gender: M : 1940 Exam Date: 05/16/2022 08:28 Exam Location: [facility] Ht (in): 68 Wt (lb): 187 Ordering Physician: Joshua Matute DO Attending/Referring Phys: [id number], Giovani Tool Mechanic Clair Navas, RD Procedure CPT: Indications: Thrombus Cardiac Hx: Technical Quality: Technically difficult study Contrast 1: Lumason Total Dose (mL): 4 Contrast 2: Total Dose (mL): MEASUREMENTS (Male / Female) Normal Values 2D ECHO LV Diastolic Diameter PLAX 5.3 cm 4.2 - 5.9 / 3.9 - 5.3 cm LV Systolic Diameter PLAX 4.9 cm IVS Diastolic Thickness 1.2 cm 0.6 - 1.0 / 0.6 - 0.9 cm LVPW Diastolic Thickness 1.6 cm 0.6 - 1.0 / 0.6 - 0.9 cm LV Relative Wall Thickness 0.5 RV Internal Dim ED PLAX 3.4 cm LA Systolic Diameter LX 4.8 cm 3.0 - 4.0 / 2.7 - 3.8 cm M-MODE Aortic Root Diameter MM 2.5 cm LA Systolic Diameter MM 4.8 cm LA Ao Ratio MM 1.9 MV E Point Septal Separation 0.5 cm AV Cusp Separation MM 1.6 cm DOPPLER MV Area PHT 2.3 cm??? Mitral E Point Velocity 27.6 cm/s Mitral A Point Velocity 76.7 cm/s Mitral E to A Ratio 0.4 MV Deceleration Time 327.4 ms MV E' Velocity 3.6 cm/s Mitral E to MV E' Ratio 7.6 FINDINGS Left Ventricle Mildly increased septal wall thickness. Left ventricular cavity size normal. Inferior basal, anterseptal hypokinesis.left ventricular ejection fraction is estimated at 40 %. Right Ventricle Normal right ventricular size and function. Right ventricular systolic pressure within normal limits. Right Atrium Normal right atrial size. Left Atrium Moderately increased left atrial diameter. Mitral Valve Structurally normal mitral valve. Mild mitral regurgitation. Aortic Valve Trileaflet aortic valve. Tricuspid Valve Structurally normal tricuspid valve. Trace to mild tricuspid regurgitation. Pulmonic Valve Structurally normal pulmonic valve. Pericardium Normal pericardium. Aorta Normal size aortic root and proximal ascending aorta. CONCLUSIONS Impaired LV function with an EF around 40% Previewed by: Dr. Yasmani Zavala MD (Electronically Signed) Final Date: 16 May 2022 10:08
[2022-05-16] MEDS: FLUTICASONE 50MCG/SPRAY NASAL 16GM EA NOSTRIL SCH ×2 (10:29→20:43)
[2022-05-16] MEDS: MUPIROCIN 2% OINT 22 GM TUBE TOPICAL SCH ×2 (10:29→20:46)
[2022-05-16 11:05] LABS: Chol/HDL Ratio 2.17 Ratio; LDL Cholesterol,Calculated 44.8 mg/dL (0.0-131.0); VLDL Calculation 16.14 mg/dL (5.00-40.00)
[2022-05-16 11:46] LABS: Glucose,Whole Blood 136 mg/dL (70-110)
[2022-05-16] MEDS: CLOPIDOGREL 75 MG TAB PO SCH (12:26)
--- NOTE | 2022-05-16 13:35 | P.CNNES ---
History of Present Illness Consult date: 05/16/22 Requesting physician: Joshua Matute Reason for Consult: expressive aphasia History of Present Illness: This is an 81-year-old gentleman history of laryngeal carcinoma status post resection in December 2021, coronary artery disease status post CABG diabetes, hypertension who presented because speech difficulty. Yesterday the patient was working with a speech therapist and he had an episode that his speech was garbled. He said that he was reading the line in everything that was coming out was garbled and it happened around the 2:45 PM and the episode lasted about 15 minutes. He denies any focal weakness, numbness, she'll disturbance. Denies history of stroke or TIA in the past. Patient is on home dose of aspirin 81 as well as Crestor 10 mg daily. Currently he feels back to baseline and denies any further neurological deficits. Some of the workup during this hospital visit consisted of: CT of the head is reported as no acute intracranial process. Follow-up MRI can be performed as cochlear indicated. I personally reviewed the CT and there is no acute or subacute ischemia and there is no typical hemorrhage. Carotid duplex is reported as 50-69% stenosis in the left chronic bifurcation by peak systolic velocity. Less than 50% stenosis in the right carotid bifurcation. The echo was reported as impaired left ventricular function with ejection fraction about 40%. Moderately increased left atrial diameter. NIH stroke scale was a 0. Since the patient symptoms resolved patient did not get IV TPA because the risk outweighed the benefit. Lipid panels triglyceride of 80, cholesterol 213, LDLs 44 and HDL is 52. Review of Systems Review of system: The 12 point system was reviewed and apparent positive and negative per HPI. Past Medical History Past Medical History: Diabetes Mellitus, Myocardial Infarction ([place]) Additional Past Medical History / Comment(s): neuropathy, right eye bleed Last Myocardial Infarction Date:: 11/15/09 History of Any Multi-Drug Resistant Organisms: None Reported Past Surgical History: Appendectomy, Coronary Bypass/CABG Additional Past Surgical History / Comment(s): right eye Past Psychological History: No Psychological Hx Reported Smoking Status: Never smoker Past Alcohol Use History: Occasional Past Drug Use History: None Reported - Past Family History Mother Family Medical History: Diabetes Mellitus Father Family Medical History: Cancer Additional Family Medical History / Comment(s): LUNG CANCER Medications and Allergies Home Medications Medication Instructions Recorded Confirmed Type glipiZIDE [Glucotrol] 2.5 mg PO AC-BID 12/26/13 05/15/22 History Aspirin EC [Ecotrin Low Dose] 81 mg PO DAILY 05/15/22 05/15/22 History Calcipotriene [Dovonex] 1 applic TOPICAL BID 05/15/22 05/15/22 History Calcium Acetate [Phoslo] 667 mg PO TID-W/MEALS 05/15/22 05/15/22 History Cholecalciferol [Vitamin D3 (25 25 mcg PO MOWEFR 05/15/22 05/15/22 History Mcg = 1000 Iu)] Famotidine 40 mg PO BID 05/15/22 05/15/22 History Finasteride [Proscar] 5 mg PO DAILY 05/15/22 05/15/22 History Fluoride (Sodium) [Sodium Fluoride] 1 applic DENTAL BID 05/15/22 05/15/22 History Fluticasone Nasal [place] [Flonase 1 spr EA NOSTRIL BID 05/15/22 05/15/22 History Nasal [place]] Isosorbide Mononitrate ER [Imdur] 60 mg PO DAILY 05/15/22 05/15/22 History Mupirocin 2% Oint [Bactroban 2% 1 applic TOPICAL BID 05/15/22 05/15/22 History Oint] Omeprazole 40 mg PO DAILY 05/15/22 05/15/22 History Polyvinyl Alcohol/Povidone [Clear 1 drop BOTH EYES 5XD 05/15/22 05/15/22 History Eyes Natural Tears Drop] Refresh Liquigel 1 drop BOTH EYES HS 05/15/22 05/15/22 History Rosuvastatin [Crestor] 10 mg PO DAILY 05/15/22 05/15/22 History Tamsulosin [Flomax] 0.4 mg PO HS 05/15/22 05/15/22 History Triamcinolone 0.1% Ointment 1 applic TOPICAL BID PRN 05/15/22 05/15/22 History [Kenalog 0.1% Ointment] Urea 20% Cream 1 applic TOPICAL DAILY PRN 05/15/22 05/15/22 History carvediloL [Coreg] 6.25 mg PO BID 05/15/22 05/15/22 History fluorouraciL [Efudex] 1 applic TOPICAL BID PRN 05/15/22 05/15/22 History hydrALAZINE HCL 20 mg PO BID 05/15/22 05/15/22 History lisinopriL 2.5 mg PO DAILY 05/15/22 05/15/22 History Allergies Allergy/AdvReac Type Severity Reaction Status Date / Time pravastatin [From Pravachol] [facility] Verified 05/15/22 19:10 records Physical Examination - Vital Signs Vital Signs: Vital Signs Temp Pulse Pulse Resp BP BP Pulse Ox 05/16/22 12:20 98.3 F 60 16 153/78 05/16/22 08:30 97.6 F 66 16 170/84 05/16/22 04:00 97.7 F 73 18 146/73 05/16/22 02:00 72 18 05/15/22 23:00 98.0 F 77 18 178/89 05/15/22 22:34 68 16 167/98 98 05/15/22 20:21 82 16 188/92 98 05/15/22 17:01 68 18 183/99 96 05/15/22 15:58 98.2 F 69 20 197/100 98 Intake and Output 05/15/22 05/16/22 05/16/22 22:59 06:59 14:59 Intake Total 240 Output Total 600 Balance -600 240 Intake: Oral 240 Output: Urine 600 Other: Voiding Method Urinal Urinal # Voids 1 Weight 84.822 kg 84.822 kg GENERAL: The patient is laying in bed and is not in acute distress. CHEST: The heart rate is regular rate rhythm. No murmurs to auscultation. No carotid bruit bilaterally. LUNG: Clear to auscultation bilaterally no wheezing noted throughout. Not labored breathing. ABDOMEN/GI: Bowel sounds present in all 4 quadrants. No tenderness to palpation throughout. NEUROLOGICAL: Higher mental function: The patient is awake, alert, oriented to self, place and time. Patient is following commands. No aphasia and no neglect. Cranial nerves: The pupils are round, equal and reactive to light and accommodation. Visual kaur are full to confrontation throughout. Extraocular movement is intact no nystagmus is noted. Facial sensation is normal to touch throughout. The facial strength is normal throughout. Hearing is normal bilaterally to hand rub. Tongue is midline and moved [id number] without any difficulty. No dysarthria is noted. Shoulder shrug is normal bilaterally. Motor: The strength is 5 over 5 throughout. Normal tone and bulk. Cerebellum: Normal finger to nose bilaterally. Sensation: Sensation is normal to touch throughout. Reflexes (right/left): 2+ throughout. Plantars are downgoing bilaterally. Results - Laboratory Findings CBC and BMP: 05/15/22 16:13 05/15/22 16:13 Abnormal Lab Findings: Abnormal Labs 05/15/22 05/15/22 05/16/22 16:13 23:22 11:44 BUN 48 H Creatinine 2.68 H POC Glucose (mg/dL) 153 H 136 H Assessment and Plan Assessment: Transient ischemic stroke (expressive aphasia). Etiology is unknown but could be due to artery to artery (left carotid bifurcation stensosis about 50-69%). Symptomatic left carotid stenosis (50-69%) per duplex History of laryngeal cancer status post resection in December 2021 Diabetes mellitus History of coronary artery disease status post CABG Plan: I ordered CT angiography of the neck see if there is any discrepancies between the duplex and that CT. I spoke with the banker mason (Dr. Mijares) to look into carotid stenosis. From neurological perspective I feel more medical management rather than surgical unless there >70% stenosis on CTA. Patient was continued on his home dose of aspirin 81 and in addition was started on Plavix 75. The patient to be on dual antiplatelets for now. Patient is on Rosuvastatin 20mg daily. MRI the brain is ordered by the ED team Continue neuro checks Cardiac monitoring CLIENT ONBOARDING ANALYST is consulted. PT or OT are not consulted since the patient has no focal deficit. We'll defer the rest of the medical management to the primary team. Upon discharge the patient needs to follow-up with a neurologist as an outpatient within 1-2 weeks For DVT prophylaxis the patient is on subcu heparin 5000 units every hours. Plan was discussed with the patient. Thank you for the Consultation Time with Patient: Greater than 30
--- NOTE | 2022-05-16 15:13 | P.PN ---
Subjective Progress Note Date: 05/16/22 The patient is an 81-year-old male with a PMH of type II DM, BPH, hypertension, hyperlipidemia, chronic kidney disease stage IV, and recently resected laryngeal carcinoma who was sent to the emergency room from his speech therapist's office with concerns for stroke. The patient states that he is currently undergoing speech therapy after the resection of his malignancy, and was having a regular session earlier today at around 2:45 PM when suddenly his speech became garbled. CT brain in the emergency room was unremarkable with EKG showing sinus rhythm with sinus arrhythmia at 60 bpm with inferior Q waves. Carotid Dopplers revealed a 50-69% stenosis of the left carotid bifurcation with less than 50% stenosis of the right carotid bifurcation. Chest x-ray was unremarkable. Laboratory evaluation was remarkable for creatinine of 2.68 with troponin less than 0.012. Patient was seen and examined. No acute events overnight. Patient reports complete resolution of his speech difficulties. He passed his swallow evaluation without any issues. He denies any focal neurological deficits. General: non toxic, no distress, appears at stated age Derm: warm, dry Head: atraumatic, normocephalic, symmetric Eyes: EOMI, no lid lag, anicteric sclera Mouth: no lip lesion, mucus membranes moist Cardiovascular: S1S2 reg, no murmur Lungs: CTA bilateral, no rhonchi, no rales , no accessory muscle use Ext: no gross muscle atrophy, no edema, no contractures Neuro: no focal neuro deficits Psych: Alert, oriented, appropriate affect #Aphasia, suspected TIA -Advanced neurochecks -MRI brain pending -Neurology on board -Continue with aspirin, statin -Plavix added -Telemetry monitoring #Systolic CHF -Echocardiogram shows EF of 40% with regional wall motion abnormality -No baseline echocardiogram to compare -Cardiology consulted #Carotid stenosis -CTA head and neck ordered to compare with carotid Doppler Chronic conditions: Type II DM, hypertension, hyperlipidemia, chronic kidney disease -Continue with home medications -Insulin sliding scale blood glucose monitoring Objective - Vital Signs Vital signs: Vital Signs Temp 98.3 F 05/16/22 12:20 Pulse 60 05/16/22 12:20 Resp 16 05/16/22 12:20 BP 153/78 05/16/22 12:20 Pulse Ox 98 05/15/22 22:34 FiO2 Intake & Output 05/15/22 05/16/2222 18:59 06:59 18:59 Intake Total 240 Output Total 600 Balance -600 240 Weight 84.822 kg 84.822 kg Intake: Oral 240 Output: Urine 600 Other: Voiding Method Urinal Urinal # Voids 1 - Labs CBC & Chem 7: 05/15/22 16:13 05/15/22 16:13 Labs: Abnormal Lab Results - Last 24 Hours (Table) 05/15/22 05/15/22 05/16/22 Range/Units 16:13 23:22 11:44 BUN 48 H (9-20) mg/dL Creatinine 2.68 H (0.66-1.25) mg/dL POC Glucose (mg/dL) 153 H 136 H (70-110) mg/dL
--- NOTE | 2022-05-16 15:56 | MR ---
EXAMINATION TYPE: MR brain wo con DATE OF EXAM: 05/16/2022 3:38 PM COMPARISON: CT brain 05/15/2022. CLINICAL INDICATION:Male, 81 years old with history of Neuro deficit, acute, stroke suspected; [facility], TECHNIQUE: Multi planar, multi sequence imaging was performed through the brain without administratio n of Gadavist. FINDINGS: The kerr-white junctions, ventricular system, and cisterns appear unremarkable. Patchy areas of high T2 signal intensity are seen within the periventricular and subcortical white matter. There are symm etric regions of T2/FLAIR hyperintensity within the bilateral medial temporal lobes and inferior medi al bilateral frontal lobes. Remote left basal ganglia lacunar injury. Midline structures show no abno rmality. Diffusion-weighted imaging shows no evidence of restricted diffusion. The susceptibility yan ghted images do not reveal any evidence for micro-hemorrhage. The bone marrow signal is within normal limits. Both ocular lenses are surgically absent. Moderate le ft and mild right maxillary mucosal sinus thickening. IMPRESSION: 1. No evidence of acute/subacute infarct. 2. Nonspecific symmetric regions of T2/FLAIR hyperintensity within the bilateral medial temporal lobe s and inferior frontal lobes. This can be seen with a variety of etiologies including neurodegenerati ve disease, infection, epileptic syndromes, metabolic disease versus other. 3. Nonspecific white matter changes, likely secondary to small vessel ischemic disease. 4. Remote left basal ganglial lacunar injury.
[2022-05-16 16:29] LABS: Glucose,Whole Blood 166 mg/dL (70-110)
[2022-05-16 20:41] LABS: Glucose,Whole Blood 106 mg/dL (70-110)
[2022-05-16] MEDS ORDERED: TAMSULOSIN 0.4 MG CAP.ER.24H PO SCH (21:00)
[2022-05-16] MEDS ORDERED: REFRESH LIQUIGEL BOTH EYES SCH (21:00)
[2022-05-17] MEDS: ARTIFICIAL TEARS-HYPROMELLOSE DROPS 15 ML BTL BOTH EYES SCH ×3 (03:46→11:59)
[2022-05-17 06:03] VITALS: RESP 16
[2022-05-17 06:32] LABS: Glucose,Whole Blood 89 mg/dL (70-110)
[2022-05-17] MEDS: CALCIUM ACETATE 667 MG TAB PO SCH ×2 (06:47→12:41)
[2022-05-17] MEDS: INSULIN ASPART (NovoLOG) 100 UNIT/ML VIAL SQ SCH ×2 (06:47→12:41)
[2022-05-17] MEDS: carvediloL 6.25 MG TAB PO SCH (06:47)
[2022-05-17 07:08] LABS: Potassium 4.1 mmol/L (3.5-5.1)
[2022-05-17] MEDS ORDERED: CHOLECALCIFEROL 25 MCG (1000 IU) TABLET PO SCH (09:00)
[2022-05-17] MEDS ORDERED: ASPIRIN 81 MG PO SCH (09:00)
[2022-05-17] MEDS ORDERED: NON FORMULARY DRUG (Rosuvastatin 20 MG) PO SCH (09:00)
[2022-05-17] MEDS ORDERED: FAMOTIDINE 20 MG TAB PO SCH (09:00)
[2022-05-17] MEDS: FINASTERIDE 5 MG TAB PO SCH (09:05)
[2022-05-17] MEDS: HEPARIN SODIUM,PORCINE/PF 5,000 UNIT/0.5 ML SYRINGE SQ SCH (09:05)
[2022-05-17] MEDS: CLOPIDOGREL 75 MG TAB PO SCH (09:06)
[2022-05-17] MEDS: PANTOPRAZOLE 40 MG TABLET PO SCH (09:06)
[2022-05-17] MEDS: ISOSORBIDE MONONITRATE ER 60 MG TAB.ER.24H PO SCH (09:06)
[2022-05-17] MEDS: hydrALAZINE HCL 10 MG TAB PO SCH (09:07)
[2022-05-17] MEDS: CALCIPOTRIENE TOPICAL SCH (09:07)
[2022-05-17] MEDS: FLUTICASONE 50MCG/SPRAY NASAL 16GM EA NOSTRIL SCH (09:08)
[2022-05-17] MEDS: MUPIROCIN 2% OINT 22 GM TUBE TOPICAL SCH (09:08)
[2022-05-17] MEDS: SODIUM FLUORIDE MUCOUS MEM SCH (09:08)
[2022-05-17 12:11] LABS: Glucose,Whole Blood 135 mg/dL (70-110)
[2022-05-17 12:46] VITALS: BP 118/54; PULSE 55; TEMP 97.8
--- NOTE | 2022-05-17 13:43 | P.CRDCN ---
History of Present Illness History of present illness: HISTORY OF PRESENTING ILLNESS Patient is pleasant 81-year-old male with history of diabetes mellitus type 2, BPH, hypertension, hyperlipidemia, CAD stage IV, previous laryngeal cancer, CAD status post initial stenting 14 years ago as well as bypass. Cardiology was consult that secondary to cardiomyopathy. He presented 05/15 secondary to 3-5 minutes of garbled speech which she had never had before. CT of the brain showed no acute processes and MRI showed no acute stroke. Carotid ultrasound showed 50-69% stenosis of the left carotid and less than 50% stenosis of the right carotid. Creatinine 2.6 and troponin normal. He denies any chest pain or pressure. He is noted to have Q waves inferiorly on EKG. He does believe there may have been some damage with prior heart attack however unclear of last ejection fraction. [facility]. Echocardiogram shows ejection fraction 40% with mention of inferior basal and anterior septal hypokinesis. EKG shows sinus rhythm, Q waves inferiorly, normal axis, nonspecific T wave flattening. REVIEW OF SYSTEMS At the time of my exam: CONSTITUTIONAL: Denies fever or chills. CARDIOVASCULAR: Denies chest pain, shortness of breath, orthopnea, PND or palpitations. RESPIRATORY: Denies cough. GASTROINTESTINAL: Denies abdominal pain, diarrhea, constipation, nausea or vomiting. MUSCULOSKELETAL: Denies myalgias. NEUROLOGIC: Denies numbness, tingling or weakness. ENDOCRINE: Denies fatigue, weight change, polydipsia or polyurina. GENITOURINARY: Denies burning, hematuria or urgency with micturation. HEMATOLOGIC: Denies history of anemia or bleeding. PHYSICAL EXAMINATION Vital signs reviewed. CONSTITUTIONAL: No apparent distress. HEENT: Head is normocephalic. Pupils are equal, round. Sclerae anicteric. Mucous membranes of the mouth are moist. No JVD. No carotid bruit. CHEST EXAMINATION: Lungs are clear to auscultation. No chest wall tenderness is noted on palpation or with deep breathing. HEART EXAMINATION: Regular rate and rhythm. S1, S2 heard. No murmurs, gallops or rub. ABDOMEN: Soft, nontender. Positive bowel sounds. EXTREMITIES: 2+ peripheral pulses, no lower extremity edema and no calf tenderness. NEUROLOGIC EXAMINATION: Patient is awake, alert and oriented x3. ASSESSMENT 1. Dysarthria consistent with TIA 2. Carotid artery stenosis left 50-69% 3. Cardiomyopathy, likely ischemic with previous myocardial infarction and bypass in Q waves inferiorly on EKG 4. Chronic systolic heart failure 5. CAD with prior bypass 6. Hypertension 7. Hyperlipidemia PLAN Patient's cardiomyopathy likely old with previous history of ND and bypass. No significant angina-type symptoms and especially given his kidney function would continue with current heart failure regimen. Patient's main presentation consistent with TIA. May consider event monitor to further evaluate for any underlying atrial fibrillation. Patient may follow-[facility]2 weeks. Past Medical History Past Medical History: Diabetes Mellitus, Myocardial Infarction (ND) Additional Past Medical History / Comment(s): neuropathy, right eye bleed Last Myocardial Infarction Date:: 11/15/09 History of Any Multi-Drug Resistant Organisms: None Reported Past Surgical History: Appendectomy, Coronary Bypass/CABG Additional Past Surgical History / Comment(s): right eye Past Psychological History: No Psychological Hx Reported Smoking Status: Never smoker Past Alcohol Use History: Occasional Past Drug Use History: None Reported - Past Family History Mother Family Medical History: Diabetes Mellitus Father Family Medical History: Cancer Additional Family Medical History / Comment(s): LUNG CANCER Medications and Allergies Home Medications Medication Instructions Recorded Confirmed Type glipiZIDE [Glucotrol] 2.5 mg PO AC-BID 12/26/13 05/15/22 History Aspirin EC [Ecotrin Low Dose] 81 mg PO DAILY 05/15/22 05/15/22 History Calcipotriene [Dovonex] 1 applic TOPICAL BID 05/15/22 05/15/22 History Calcium Acetate [Phoslo] 667 mg PO TID-W/MEALS 05/15/22 05/15/22 History Cholecalciferol [Vitamin D3 (25 25 mcg PO MOWEFR 05/15/22 05/15/22 History Mcg = 1000 Iu)] Famotidine 40 mg PO BID 05/15/22 05/15/22 History Finasteride [Proscar] 5 mg PO DAILY 05/15/22 05/15/22 History Fluoride (Sodium) [Sodium Fluoride] 1 applic DENTAL BID 05/15/22 05/15/22 History Fluticasone Nasal [place] [Flonase 1 spr EA NOSTRIL BID 05/15/22 05/15/22 History Nasal [place]] Isosorbide Mononitrate ER [Imdur] 60 mg PO DAILY 05/15/22 05/15/22 History Mupirocin 2% Oint [Bactroban 2% 1 applic TOPICAL BID 05/15/22 05/15/22 History Oint] Omeprazole 40 mg PO DAILY 05/15/22 05/15/22 History Polyvinyl Alcohol/Povidone [Clear 1 drop BOTH EYES 5XD 05/15/22 05/15/22 History Eyes Natural Tears Drop] Refresh Liquigel 1 drop BOTH EYES HS 05/15/22 05/15/22 History Rosuvastatin [Crestor] 10 mg PO DAILY 05/15/22 05/15/22 History Tamsulosin [Flomax] 0.4 mg PO HS 05/15/22 05/15/22 History Triamcinolone 0.1% Ointment 1 applic TOPICAL BID PRN 05/15/22 05/15/22 History [Kenalog 0.1% Ointment] Urea 20% Cream 1 applic TOPICAL DAILY PRN 05/15/22 05/15/22 History carvediloL [Coreg] 6.25 mg PO BID 05/15/22 05/15/22 History fluorouraciL [Efudex] 1 applic TOPICAL BID PRN 05/15/22 05/15/22 History hydrALAZINE HCL 20 mg PO BID 05/15/22 05/15/22 History lisinopriL 2.5 mg PO DAILY 05/15/22 05/15/22 History Allergies Allergy/AdvReac Type Severity Reaction Status Date / Time pravastatin [From Pravachol] [facility] Verified 05/15/22 19:10 records Physical Exam Vitals: Vital Signs Temp Pulse Resp BP 05/17/22 12:45 97.8 F 55 L 16 118/54 05/17/22 09:04 98.8 F 61 16 119/63 05/17/22 04:00 97.7 F 68 16 119/74 05/17/22 02:00 58 L 18 05/17/22 00:00 98.0 F 58 L 18 137/65 05/16/22 20:00 97.9 F 60 17 159/75 05/16/22 16:16 98.0 F 59 L 16 154/77 Intake and Output 05/16/22 05/17/22 05/17/22 22:59 06:59 14:59 Intake Total 660 238 Output Total 750 600 Balance -90 -600 238 Intake: Oral 660 238 Output: Urine 750 600 Other: Voiding Method Urinal Urinal # Voids 1 Results 05/15/22 16:13 05/17/22 05:54 Comprehensive Metabolic Panel 05/17/22 Range/Units 05:54 Sodium 137 (137-145) mmol/L Potassium 4.1 (3.5-5.1) mmol/L Chloride 108 H (98-107) mmol/L Carbon Dioxide 25 (22-30) mmol/L BUN 49 H (9-20) mg/dL Creatinine 3.14 H (0.66-1.25) mg/dL Glucose 90 (74-99) mg/dL Calcium 8.0 L (8.4-10.2) mg/dL Current Medications Generic Name Dose Route Start Last Admin Trade Name Freq PRN Reason Stop Dose Admin Artificial Tears 1 drops 05/16/22 06:00 05/17/22 11:59 Artificial Tears-Hypromellose Drops 15 Ml Btl BOTH EYES Not Given 5XD YOEL Aspirin 81 mg 05/17/22 09:00 05/17/22 09:06 Aspirin 81 Mg PO 81 mg DAILY YOEL Administration Calcium Acetate 667 mg 05/16/22 07:30 05/17/22 12:41 Calcium Acetate 667 Mg Tab PO 667 mg TID-W/MEALS YOEL Administration Carvedilol 6.25 mg 05/16/22 07:30 05/17/22 06:47 Carvedilol 6.25 Mg Tab PO 6.25 mg BID-W/MEALS YOEL Administration Cholecalciferol 25 mcg 05/17/22 09:00 05/17/22 09:07 Cholecalciferol 25 Mcg (1000 Iu) Tablet PO 25 mcg MoWeFr@0900 YOEL Administration Clopidogrel Bisulfate 75 mg 05/16/22 11:30 05/17/22 09:06 Clopidogrel 75 Mg Tab PO 75 mg DAILY YOEL Administration Famotidine 40 mg 05/17/22 09:00 05/17/22 09:05 Famotidine 20 Mg Tab PO 40 mg DAILY YOEL Administration Finasteride 5 mg 05/16/22 09:00 05/17/22 09:05 Finasteride 5 Mg Tab PO 5 mg DAILY YOEL Administration Fluticasone Propionate 1 spray 05/16/22 09:00 05/17/22 09:08 Fluticasone 50mcg/[place] Nasal 16gm EA NOSTRIL Not Given BID YOEL Glipizide 2.5 mg 05/16/22 18:30 05/17/22 06:48 Glipizide 2.5 Mg Tab PO 2.5 mg AC-BID YOEL Administration Heparin Sodium (Porcine) 5,000 unit 05/16/22 00:00 05/17/22 09:05 Heparin Sodium,Porcine/Pf 5,000 Unit/0.5 Ml Syringe SQ 5,000 unit Q8HR YOEL Administration Hydralazine HCl 20 mg 05/16/22 09:00 05/17/22 09:07 Hydralazine Hcl 10 Mg Tab PO 20 mg BID YOEL Administration Insulin Aspart 0 unit 05/16/22 07:30 05/17/22 12:41 Insulin Aspart (Novolog) 100 Unit/Ml Vial SQ Not Given ACHS [facility] Protocol Isosorbide Mononitrate 60 mg 05/16/22 09:00 05/17/22 09:06 Isosorbide Mononitrate Er 60 Mg Tab.Er.24h PO 60 mg DAILY YOEL Administration Lisinopril 2.5 mg 05/16/22 09:00 05/17/22 09:06 Lisinopril 2.5 Mg Tab PO 2.5 mg DAILY YOEL Administration Mupirocin 1 applic 05/16/22 09:00 05/17/22 09:08 Mupirocin 2% Oint 22 Gm Tube TOPICAL Not Given BID [facility] Protocol Non-Formulary Medication 1 applic 05/16/22 09:00 05/17/22 09:07 Calcipotriene [Dovonex] TOPICAL Not Given BID [facility] Non-Formulary Medication 1 applic 05/16/22 09:00 05/17/22 09:08 Fluoride (Sodium) [Sodium Fluoride] MUCOUS MEM Not Given BID [facility] Non-Formulary Medication 1 applic 05/15/22 21:28 Urea 20% Cream TOPICAL DAILY PRN Dry Skin Non-Formulary Medication 20 mg 05/17/22 09:00 05/17/22 09:08 Rosuvastatin PO Not Given DAILY YOEL Pantoprazole Sodium 40 mg 05/16/22 09:00 05/17/22 09:06 Pantoprazole 40 Mg Tablet PO 40 mg DAILY YOEL Administration Tamsulosin HCl 0.4 mg 05/16/22 21:00 05/16/22 20:44 Tamsulosin 0.4 Mg Cap.Er.24h PO 0.4 mg HS YOEL Administration Triamcinolone Acetonide 1 applic 05/16/22 09:00 Triamcinolone Acet 0.1% Ointment 15 Gm Tube TOPICAL BID PRN leg itching or burning Protocol Intake and Output 05/16/22 05/17/22 05/17/22 22:59 06:59 14:59 Intake Total 660 238 Output Total 750 600 Balance -90 -600 238 Intake: Oral 660 238 Output: Urine 750 600 Other: Voiding Method Urinal Urinal # Voids 1 05/15/22 16:13 05/17/22 05:54
--- NOTE | 2022-05-17 14:07 | P.PN ---
Subjective Progress Note Date: 05/17/22 The patient is seen at bedside and denies any further speech difficulty or any new neurological issues. Because of kidney issue cannot obtain CTA or MRA for better evaluation of carotids. Objective - Vital Signs Vital signs: Vital Signs Temp 97.8 F 05/17/22 12:45 Pulse 55 L 05/17/22 12:45 Resp 16 05/17/22 12:45 BP 118/54 05/17/22 12:45 Pulse Ox 98 05/15/22 22:34 FiO2 Intake & Output 05/16/22 05/17/22 05/17/22 18:59 06:59 18:59 Intake Total 900 238 Output Total 150 1200 Balance 750 -1200 238 Intake: Oral 900 238 Output: Urine 150 1200 Other: Voiding Method Urinal Urinal # Voids 1 - Exam GENERAL: The patient is laying in bed and is not in acute distress. NEUROLOGICAL: Higher mental function: The patient is awake, alert, oriented to self, place and time. Patient is following commands. No aphasia and no neglect. Cranial nerves: The pupils are round, equal and reactive to light and accommodation. Visual kaur are full to confrontation throughout. Extraocular movement is intact no nystagmus is noted. Facial sensation is normal to touch throughout. The facial strength is normal throughout. Hearing is normal bilaterally to hand rub. Tongue is midline and moved [id number] without any difficulty. No dysarthria is noted. Shoulder shrug is normal bilaterally. Motor: The strength is 5 over 5 throughout. Normal tone and bulk. Cerebellum: Normal finger to nose bilaterally. Sensation: Sensation is normal to touch throughout. Reflexes (right/left): 2+ throughout. Plantars are downgoing bilaterally. Some of the workup during this hospital visit consisted of: Lipid panel: Triglyceride of 80, cholesterol of 113, LDL is 44 and HDL is [address] of the head is reported as no acute intracranial process. Follow-up MRI can be performed as cochlear indicated. I personally reviewed the CT and there is no acute or subacute ischemia and there is no typical hemorrhage. Carotid duplex is reported as 50-69% stenosis in the left chronic bifurcation by peak systolic velocity. Less than 50% stenosis in the right carotid bifurcation. 2D echo was reported as impaired left ventricular function with ejection fraction about 40%. Moderately increased left atrial diameter. MR the brain is reported as no evidence of acute/subacute infarct. Nonspecific symmetric region of T2/flare hyperintensity within the bilateral medial temporal lobe and inferior frontal. This can be seen a variety of etiologies including neurodegenerative disease, infection, Optic syndrome, metabolic versus other. Nonspecific white matter changes, likely secondary to small vessel ischemic disease. Remote left basal ganglia lacunar infarct. I personally reviewed MRI and there is no acute or subacute ischemia. I feel the white matter changes are nonspecific and seems likely microvascular small vessel disease. - Labs CBC & Chem 7: 05/15/22 16:13 05/17/22 05:54 Labs: Abnormal Lab Results - Last 24 Hours (Table) 05/16/22 05/17/22 05/17/22 Range/Units 16:27 05:54 12:10 Chloride 108 H (98-107) mmol/L BUN 49 H (9-20) mg/dL Creatinine 3.14 H (0.66-1.25) mg/dL POC Glucose (mg/dL) 166 H 135 H (70-110) mg/dL Calcium 8.0 L (8.4-10.2) mg/dL Assessment and Plan Assessment: Transient ischemic stroke (expressive aphasia). Etiology is unknown but could be due to artery to artery (left carotid bifurcation stensosis about 50-69%). Symptomatic left carotid stenosis (50-69%) per duplex History of laryngeal cancer status post resection in December 2021 Diabetes mellitus History of coronary artery disease status post CABG Plan: Cannot obtain CTA or MRA because of kidney issues. I spoke with the c ardiologist (Dr. Mijares) to look into carotid stenosis. From neurological perspective I feel more medical management rather than surgical unless there >70% stenosis on repeated images (CTA or MRA that can be considered as outpatient once kidney improves). Patient was continued on his home dose of aspirin 81 and in addition was started on Plavix 75mg. The patient to be on dual antiplatelets and after 21 days. Aspirin but continue Plavix indefinitely. Patient is on Rosuvastatin 20mg daily. Continue neuro checks Cardiac monitoring PASSENGER FLAGMAN is consulted. PT or OT are not consulted since the patient has no focal deficit. We'll defer the rest of the medical management to the primary team. Upon discharge the patient needs to follow-up with a neurologist as an outpatient within 1-2 weeks For DVT prophylaxis the patient is on subcu heparin 5000 units every hours. There is no additional neurological workup. Please notify neurology team if any further concerns. Plan was discussed with the patient and primary team. Time with Patient: Less than 30
--- NOTE | 2022-05-17 14:17 | P.DS ---
Providers Date of admission: 05/15/22 17:52 Expected date of discharge: 05/17/22 Attending physician: Cynthia Yepez DO Consults: 05/15/22 17:53 Consult Physician Routine Consulting Provider: Ney Traylor Consult Reason/Comments: expressive aphasia Do you want consulting provider notified?: Yes 05/16/22 10:20 Consult Physician Routine Consulting Provider: Yasmani Zavala Consult Reason/Comments: low EF, hypokinetic wall motion Do you want consulting provider notified?: Yes Primary care physician: [facility] Hospital Course: The patient is an 81-year-old male with a PMH of type II DM, BPH, hypertension, hyperlipidemia, chronic kidney disease stage IV, and recently resected laryngeal carcinoma who was sent to the emergency room from his speech therapist's office with concerns for stroke. The patient states that he is currently undergoing speech therapy after the resection of his malignancy, and was having a regular session earlier today at around 2:45 PM when suddenly his speech became garbled. CT brain in the emergency room was unremarkable with EKG showing sinus rhythm with sinus arrhythmia at 60 bpm with inferior Q waves. Carotid Dopplers revealed a 50-69% stenosis of the left carotid bifurcation with less than 50% stenosis of the right carotid bifurcation. Chest x-ray was unremarkable. Laboratory evaluation was remarkable for creatinine of 2.68 with troponin less than 0.012. Neurology was consulted and followed the patient during his hospitalization. MRI brain showed no acute/subacute infarct, nonspecific symmetric regions of T2/FLAIR hyperintensity within the bilateral medial temporal lobes and inferior frontal lobes, small vessel ischemic disease, remote left basal ganglia lacunar injury. Patient was started on Plavix in addition to aspirin. His Crestor was increased from 10 mg to 20 mg by mouth daily. Initially, plans were to order CTA head and neck or MRA head and neck but was discontinued due to the patient's renal function. Echocardiogram showed EF of 40% with regional wall motion abnormality. Patient reported the history of systolic CHF with previous MA. He reported following up with cardiology to the [facility]. Cardiology was consulted and recommended outpatient follow-up. Patient was seen and examined. No acute events overnight. Patient reports complete resolution of his speech difficulties. He denies any focal neurological deficits. Pertinent studies include brain CT, chest x-ray, carotid Doppler, echocardiogram, brain MRI General: non toxic, no distress, appears at stated age Derm: warm, dry Head: atraumatic, normocephalic, symmetric Eyes: EOMI, no lid lag, anicteric sclera Mouth: no lip lesion, mucus membranes moist Cardiovascular: S1S2 reg, no murmur Lungs: CTA bilateral, no rhonchi, no rales , no accessory muscle use Ext: no gross muscle atrophy, no edema, no contractures Neuro: no focal neuro deficits Psych: Alert, oriented, appropriate affect Discharge diagnosis: #Aphasia, suspected TIA #Systolic CHF #Carotid stenosis Chronic conditions: type II DM, BPH, hypertension, hyperlipidemia, chronic kidney disease stage IV, resected laryngeal carcinoma Patient will be discharged home with the following instructions: Diet: Cardiac Follow-up with your PCP within 1-2 days of discharge. [facility] of [facility]. Follow-up with vascular surgery within 1 week of discharge. Follow-up with neurology within 1 week of discharge. Take aspirin and Plavix for the next 21 days. After that, you can discontinue aspirin and continue taking Plavix indefinitely. Restart all other home medication. Come back to the ED or call 911 for worsening slurred speech, confusion, facial droop, numbness/weakness/tingling of the extremities. Patient Condition at Discharge: Stable Plan - Discharge Summary New Discharge Prescriptions: New Clopidogrel [Plavix] 75 mg PO DAILY #30 tab Rosuvastatin 20 mg PO DAILY #30 Continue glipiZIDE [Glucotrol] 2.5 mg PO AC-BID Urea 20% Cream 1 applic TOPICAL DAILY PRN PRN Reason: Dry Skin Aspirin EC [Ecotrin Low Dose] 81 mg PO DAILY Calcipotriene [Dovonex] 1 applic TOPICAL BID fluorouraciL [Efudex] 1 applic TOPICAL BID PRN PRN Reason: Scalp/Forehead/Ears/Temples Fluticasone Nasal [place] [Flonase Nasal [place]] 1 spr EA NOSTRIL BID lisinopriL 2.5 mg PO DAILY Mupirocin 2% Oint [Bactroban 2% Oint] 1 applic TOPICAL BID Omeprazole 40 mg PO DAILY Tamsulosin [Flomax] 0.4 mg PO HS Refresh Liquigel 1 drop BOTH EYES HS Calcium Acetate [PhosLo] 667 mg PO TID-W/MEALS carvediloL [Coreg] 6.25 mg PO BID Cholecalciferol [Vitamin D3 (25 Mcg = 1000 Iu)] 25 mcg PO MOWEFR Finasteride [Proscar] 5 mg PO DAILY Fluoride (Sodium) [Sodium Fluoride] 1 applic DENTAL BID hydrALAZINE HCL 20 mg PO BID Isosorbide Mononitrate ER [Imdur] 60 mg PO DAILY Polyvinyl Alcohol/Povidone [Clear Eyes Natural Tears Drop] 1 drop BOTH EYES 5XD Triamcinolone 0.1% Ointment [Kenalog 0.1% Ointment] 1 applic TOPICAL BID PRN PRN Reason: leg itching or burning Discontinued Famotidine 40 mg PO BID Rosuvastatin [Crestor] 10 mg PO DAILY Discharge Medication List glipiZIDE [Glucotrol] 2.5 mg PO AC-BID 12/26/13 [History] Aspirin EC [Ecotrin Low Dose] 81 mg PO DAILY 05/15/22 [History] Calcipotriene [Dovonex] 1 applic TOPICAL BID 05/15/22 [History] Calcium Acetate [PhosLo] 667 mg PO TID-W/MEALS 05/15/22 [History] Cholecalciferol [Vitamin D3 (25 Mcg = 1000 Iu)] 25 mcg PO MOWEFR 05/15/22 [History] Finasteride [Proscar] 5 mg PO DAILY 05/15/22 [History] Fluoride (Sodium) [Sodium Fluoride] 1 applic DENTAL BID 05/15/22 [History] Fluticasone Nasal [place] [Flonase Nasal [place]] 1 spr EA NOSTRIL BID 05/15/22 [History] Isosorbide Mononitrate ER [Imdur] 60 mg PO DAILY 05/15/22 [History] Mupirocin 2% Oint [Bactroban 2% Oint] 1 applic TOPICAL BID 05/15/22 [History] Omeprazole 40 mg PO DAILY 05/15/22 [History] Polyvinyl Alcohol/Povidone [Clear Eyes Natural Tears Drop] 1 drop BOTH EYES 5XD 05/15/22 [History] Refresh Liquigel 1 drop BOTH EYES HS 05/15/22 [History] Tamsulosin [Flomax] 0.4 mg PO HS 05/15/22 [History] Triamcinolone 0.1% Ointment [Kenalog 0.1% Ointment] 1 applic TOPICAL BID PRN 05/15/22 [History] Urea 20% Cream 1 applic TOPICAL DAILY PRN 05/15/22 [History] carvediloL [Coreg] 6.25 mg PO BID 05/15/22 [History] fluorouraciL [Efudex] 1 applic TOPICAL BID PRN 05/15/22 [History] hydrALAZINE HCL 20 mg PO BID 05/15/22 [History] lisinopriL 2.5 mg PO DAILY 05/15/22 [History] Clopidogrel [Plavix] 75 mg PO DAILY #30 tab 05/17/22 [Rx] Rosuvastatin 20 mg PO DAILY #30 05/17/22 [Rx] Follow up Appointment(s)/Referral(s): Thomas Mijares DO [STAFF PHYSICIAN] - 1 Week Dane Poon DO [STAFF PHYSICIAN] - 1 Week Napoleon Robins DO [STAFF PHYSICIAN] - 1 Week [facility]inic [Primary Care Provider] - 1-2 days Activity/Diet/Wound Care/Special Instructions: Diet: Cardiac Follow-up with your PCP within 1-2 days of discharge. [facility] 1 week of discharge. Follow-up with vascular surgery within 1 week of discharge. Follow-up with neurology within 1 week of discharge. Take aspirin and Plavix for the next 21 days. After that, you can discontinue aspirin and continue taking Plavix indefinitely. Restart all other home medication. Come back to the ED or call 911 for worsening slurred speech, confusion, facial droop, numbness/weakness/tingling of the extremities. Discharge Disposition: HOME SELF-CARE
== END 2022-05-17 15:36 | disposition home or self-care (01) ==
LOC: EC 15:52 → SUPCPDRO 15:52 → 3SCARD 17:52
PROVIDERS: ADMIT Internal Medicine; ATTEND Internal Medicine
DX: R47.01 Aphasia (principal); I13.2 Hypertensive heart and chronic kidney disease with heart failure and with stage 5 chronic kidney disease, or end stage renal disease; I25.2 Old myocardial infarction; I25.10 Atherosclerotic heart disease of native coronary artery without angina pectoris; E11.22 Type 2 diabetes mellitus with diabetic chronic kidney disease; I65.23 Occlusion and stenosis of bilateral carotid arteries; E11.40 Type 2 diabetes mellitus with diabetic neuropathy, unspecified; N18.6 End stage renal disease; N40.0 Benign prostatic hyperplasia without lower urinary tract symptoms; I08.1 Rheumatic disorders of both mitral and tricuspid valves; E78.5 Hyperlipidemia, unspecified; I50.22 Chronic systolic (congestive) heart failure; I42.9 Cardiomyopathy, unspecified; H57.89 Other specified disorders of eye and adnexa; Z95.1 Presence of aortocoronary bypass graft; Z79.82 Long term (current) use of aspirin; Z79.899 Other long term (current) drug therapy; Z79.84 Long term (current) use of oral hypoglycemic drugs; Z85.21 Personal history of malignant neoplasm of larynx; Z83.3 Family history of diabetes mellitus; Z80.1 Family history of malignant neoplasm of trachea, bronchus and lung
CPT/HCPCS: 96372 ×2; 99285; 36415; 93005; 93306; 80061; 80053; 80048; 84443; 84484; 85025; 85610; 85730; 71046; 93880; 70450; 70551; G0378 ×3; S0138 ×2; Q9950; J1644 ×2

== ENCOUNTER 2022-06-02 10:31 | Emergency (ER) | payer OTHER ==
--- NOTE | 2022-06-02 11:43 | XR ---
EXAMINATION TYPE: XR chest 2V DATE OF EXAM: 06/02/2022 11:33 AM COMPARISON: Chest radiographs from 05/15/2022 TECHNIQUE: XR chest 2V Frontal and lateral views of the chest. CLINICAL INDICATION:Male, 81 years old with history of cough; FINDINGS: Lungs/Pleura: There is no evidence of pleural effusion, focal consolidation, or pneumothorax. Pulmonary vascularity: Unremarkable. Heart/mediastinum: Cardiomediastinal silhouette is unremarkable. Atherosclerotic calcifications are seen in the aorta. Post CABG changes Musculoskeletal: Multiple level degenerative disc disease changes seen throughout the spine. Midline sternotomy wires are noted and stable. IMPRESSION: No acute cardiopulmonary disease/process.
--- NOTE | 2022-06-02 12:08 | ED ---
URI HPI - General Chief Complaint: Upper Respiratory Infection Stated Complaint: COVID+ Time Seen by Provider: 06/02/22 10:46 Source: patient, RN notes reviewed Mode of arrival: ambulatory Limitations: no limitations - History of Present Illness Initial Comments: 81-year-old male presents emergency Department chief complaint of covid 19. Patient states started symptoms 2 days ago tested positive at home last night. Patient states that he's had bodies, mild congestion, nonproductive dry cough, no chest pain or shortness breath. Patient does complain of mild body aches, reported possible fever. Patient denies any sick contacts denies any GI symptoms. Patient offers no complaints. - Related Data Home Medications Medication Instructions Recorded Confirmed glipiZIDE [Glucotrol] 2.5 mg PO AC-BID 12/26/13 05/15/22 Aspirin EC [Ecotrin Low Dose] 81 mg PO DAILY 05/15/22 05/15/22 Calcipotriene [Dovonex] 1 applic TOPICAL BID 05/15/22 05/15/22 Calcium Acetate [PhosLo] 667 mg PO TID-W/MEALS 05/15/22 05/15/22 Cholecalciferol [Vitamin D3 (25 25 mcg PO MOWEFR 05/15/22 05/15/22 Mcg = 1000 Iu)] Finasteride [Proscar] 5 mg PO DAILY 05/15/22 05/15/22 Fluoride (Sodium) [Sodium Fluoride] 1 applic DENTAL BID 05/15/22 05/15/22 Fluticasone Nasal [place] [Flonase 1 spr EA NOSTRIL BID 05/15/22 05/15/22 Nasal [place]] Isosorbide Mononitrate ER [Imdur] 60 mg PO DAILY 05/15/22 05/15/22 Mupirocin 2% Oint [Bactroban 2% 1 applic TOPICAL BID 05/15/22 05/15/22 Oint] Omeprazole 40 mg PO DAILY 05/15/22 05/15/22 Polyvinyl Alcohol/Povidone [Clear 1 drop BOTH EYES 5XD 05/15/22 05/15/22 Eyes Natural Tears Drop] Refresh Liquigel 1 drop BOTH EYES HS 05/15/22 05/15/22 Tamsulosin [Flomax] 0.4 mg PO HS 05/15/22 05/15/22 Triamcinolone 0.1% Ointment 1 applic TOPICAL BID PRN 05/15/22 05/15/22 [Kenalog 0.1% Ointment] Urea 20% Cream 1 applic TOPICAL DAILY PRN 05/15/22 05/15/22 carvediloL [Coreg] 6.25 mg PO BID 05/15/22 05/15/22 fluorouraciL [Efudex] 1 applic TOPICAL BID PRN 05/15/22 05/15/22 hydrALAZINE HCL 20 mg PO BID 05/15/22 05/15/22 lisinopriL 2.5 mg PO DAILY 05/15/22 05/15/22 Previous Rx's Medication Instructions Recorded Clopidogrel [Plavix] 75 mg PO DAILY #30 tab 05/17/22 Rosuvastatin 20 mg PO DAILY #30 05/17/22 Allergies Allergy/AdvReac Type Severity Reaction Status Date / Time pravastatin [From Pravachol] [facility] Verified 06/02/22 10:37 records Review of Systems ROS Statement: Those systems with pertinent positive or pertinent negative responses have been documented in the HPI. ROS Other: All systems not noted in ROS Statement are negative. Past Medical History Past Medical History: Diabetes Mellitus, Myocardial Infarction ([place]) Additional Past Medical History / Comment(s): neuropathy, right eye bleed Last Myocardial Infarction Date:: 11/15/09 History of Any Multi-Drug Resistant Organisms: None Reported Past Surgical History: Appendectomy, Coronary Bypass/CABG Additional Past Surgical History / Comment(s): right eye Past Psychological History: No Psychological Hx Reported Smoking Status: Never smoker Past Alcohol Use History: Occasional Past Drug Use History: None Reported - Past Family History Mother Family Medical History: Diabetes Mellitus Father Family Medical History: Cancer Additional Family Medical History / Comment(s): LUNG CANCER General Exam Limitations: no limitations General appearance: alert, in no apparent distress Head exam: Present: atraumatic, normocephalic, normal inspection Eye exam: Present: normal appearance, PERRL, EOMI. Absent: scleral icterus, conjunctival injection, periorbital swelling ENT exam: Present: normal exam, normal oropharynx, mucous membranes moist Neck exam: Present: normal inspection, full ROM. Absent: tenderness, meningismus, lymphadenopathy Respiratory exam: Present: normal lung sounds bilaterally. Absent: respiratory distress, wheezes, rales, rhonchi, stridor Cardiovascular Exam: Present: regular rate, normal rhythm, normal heart sounds. Absent: systolic murmur, diastolic murmur, rubs, gallop, clicks Course Vital Signs 06/02/22 10:35 Temperature 98.4 F Pulse Rate 83 Respiratory 20 Rate Blood Pressure 149/78 O2 Sat by Pulse 98 Oximetry Medical Decision Making - Medical Decision Making Was pt. sent in by a medical professional or institution (, ROBERTA, [employer], urgent care, hospital, or [place] [facility] [place]...) When possible be specific @ -No Did you speak to anyone other than the patient for history (EMS, parent, family, police, friend...)? What history was obtained from this source @ -No Did you review nursing and triage notes (agree or disagree)? Why? @ -I reviewed and agree with nursing and triage notes Were old charts reviewed (outside hosp., previous admission, EMS record, old EKG , old radiological studies, urgent care reports/EKG's, [place] [facility] [place] records)? Report findings @ -No old charts were reviewed Differential Diagnosis (chest pain, altered mental status, abdominal pain women, abdominal pain men, vaginal bleeding, weakness, fever, dyspnea, syncope, headache, dizziness, GI bleed, back pain, seizure, CVA, palpatations, mental health)? @ -COVID-19, pneumonia, rsv, influenza, this list is not all-inclusive EKG interpreted by me (3pts min.). @ -None X-rays interpreted by me (1pt min.). @ -Chest x-ray shows no evidence of pneumonia CT interpreted by me (1pt min.). @ -None done U/S interpreted by me (1pt. min.). @ -None done What testing was considered but not performed or refused? (CT, X-rays, U/S, labs)? Why? @ -None What meds were considered but not given or refused? Why? @ -Considered paxlovid blood patient has underlying renal disease Did you discuss the management of the patient with other professionals (professionals i.e. ROBERTA Engel, [employer], lab, RT, psych nurse, social media director, biological science aide, teacher, catapult and arresting gear officer, case folder)? Give summary @ -No Was smoking cessation discussed for >3mins.? @ -No Was critical care preformed (if so, how long)? @ -No Were there social determinants of health that impacted care today? How? (Homelessness, low income, unemployed, alcoholism, drug addiction, transportation, low edu. Level, literacy, decrease access to med. care, correction, rehab)? @ -No Was there de-escalation of care discussed even if they declined (Discuss DNR or withdrawal of care, Hospice)? DNR status @ -No What co-morbidities impacted this encounter? (DM, HTN, Smoking, COPD, CAD, Cancer, CVA, ARF, Chemo, Hep., AIDS, mental health diagnosis, sleep apnea, morbid obesity)? @ -[Renal disease Was patient admitted / discharged? Hospital course, mention meds given and route, prescriptions, significant lab abnormalities, going to OR and other pertinent info. @ -Discharged Undiagnosed new problem with uncertain prognosis? @ -yes Drug Therapy requiring intensive monitoring for toxicity (Heparin, Nitro, Insulin, Cardizem)? @ -No Were any procedures done? @ -No Diagnosis/symptom? @ -COVID-19 Acute, or Chronic, or Acute on Chronic? @ -acute Uncomplicated (without systemic symptoms) or Complicated (systemic symptoms)? @ -uncomplicated Side effects of treatment? @ -No Exacerbation, Progression, or Severe Exacerbation? @ -No Poses a threat to life or bodily function? How? (Chest pain, [place], [place], pneumonia, PE, COPD, DKA, ARF, appy, cholecystitis, CVA, Diverticulitis, Homicidal, Su[place], threat to staff... and all critical care pts) @ -yes Disposition Clinical Impression: COVID-19 Disposition: HOME SELF-CARE Condition: Stable Instructions (If sedation given, give patient instructions): COVID-19 (Coronavirus Disease 2019) (ED) Additional Instructions: Please return to the Emergency Department if symptoms worsen or any other concerns. Is patient prescribed a controlled substance at d/c from ED?: No Referrals: [facility],Clinic [Primary Care Provider] - 1-2 days Time of Disposition: 11:58
[2022-06-02 12:47] VITALS: BP 142/76; PULSE 80; RESP 18; TEMP 98.7
== END 2022-06-02 12:30 | disposition home or self-care (01) ==
LOC: EC 10:31
DX: U07.1 COVID-19 (principal); E11.9 Type 2 diabetes mellitus without complications; I25.2 Old myocardial infarction; Z79.82 Long term (current) use of aspirin; Z79.84 Long term (current) use of oral hypoglycemic drugs; Z79.02 Long term (current) use of antithrombotics/antiplatelets; Z88.8 Allergy status to other drugs, medicaments and biological substances
CPT/HCPCS: 71046; 99283

== ENCOUNTER 2024-04-02 11:39 | Emergency (ER) | payer OTHER ==
[2024-04-02 12:32] LABS: Basophils % (A) 0 %; Eosinophils # (A) 0.5 k/uL (0-0.7); Eosinophils % (A) 8 %; HCT 42.3 % (39.0-53.0); HGB 13.4 gm/dL (13.0-17.5); Lymphocytes # (A) 1.9 k/uL (1.0-4.8); Lymphocytes % (A) 28 %; MCH 29.8 pg (25.0-35.0); MCHC 31.7 g/dL (31.0-37.0); MCV 93.9 fL (80.0-100.0); Mean Platelet Volume 7.5; Monocytes # (A) 0.4 k/uL (0-1.0); Monocytes % (A) 6 %; Neutrophils # (A) 3.8 k/uL (1.3-7.7); Neutrophils % (A) 56 %; Platelet Count 195 k/uL (150-450); RBC 4.51 m/uL (4.30-5.90); RDW 13.9 % (11.5-15.5); WBC 6.9 k/uL (3.8-10.6)
--- NOTE | 2024-04-02 12:39 | XR ---
EXAMINATION TYPE: XR chest 2V DATE OF EXAM: 04/02/2024 COMPARISON: 06/02/2022, 10/04/2017 CLINICAL INDICATION: Male, 83 years old with history of Chest Pain; , TECHNIQUE: XR chest 2V views of the chest. FINDINGS: The lungs are clear and there is no pneumothorax, pleural effusion, or focal pneumonia. Heart size normal and no overt failure. Osseous structures demonstrate hypertrophic and degenerative changes of the spine. Postmedian sternotomy changes. Atherosclerotic change aorta. Generalized demineralization and AC joint arthropathy. There is a nodule at the right lung apex measuring 8 mm stable from 2022 an d 2017 exams and therefore likely benign. Air changes left lung base most typical of atelectasis, bro nchiectasis or scarring and stable IMPRESSION: 1. No acute process. [facility], , 04/02/2024 12:37 PM
[2024-04-02 12:53] LABS: INR 0.9 (<1.2); Partial Thromboplastin Time 24.9 sec (22.0-30.0); Prothrombin Time 10.3 sec (10.0-12.5)
[2024-04-02 12:56] LABS: ALT 11 U/L (4-49); AST 20 U/L (17-59); African American GFR (CKD) 22 (>60 ml/min/1.73 sqM); Albumin 3.8 g/dL (3.5-5.0); Alkaline Phosphatase 62 U/L (38-126); Anion Gap 6 mmol/L; Blood Urea Nitrogen 48 mg/dL (9-20); Calcium 8.9 mg/dL (8.4-10.2); Carbon Dioxide 22 mmol/L (22-30); Chloride 109 mmol/L (98-107); Glucose 129 mg/dL (74-99); Non-African American GFR(CKD) 19 (>60 ml/min/1.73 sqM); Potassium 4.6 mmol/L (3.5-5.1); Sodium 137 mmol/L (137-145); Total Bilirubin 0.7 mg/dL (0.2-1.3); Total Protein 6.2 g/dL (6.3-8.2)
[2024-04-02 13:04] LABS: NT-Pro-B-Type Natriuretic Pept 2210 pg/mL
--- NOTE | 2024-04-02 14:11 | ED ---
Chest Pain HPI - General Chief Complaint: Chest Pain Stated Complaint: Chest pain Time Seen by Provider: 04/02/24 11:52 Source: patient, RN notes reviewed Mode of arrival: ambulatory Limitations: no limitations - History of Present Illness Initial Comments: 83-year-old male presents emergency department chief complaint of right-sided chest, arm pain. Patient states it was sudden onset of symptoms states it came he dissipated very quickly he is asymptomatic currently. Patient states he had an episode like this recently and did see cardiology in which she had a stress test and was negative. Patient was told by cardiology that was noncardiac in nature. Patient states he is asymptomatic denies any loss conscious denies any shortness of breath no fevers or chills no other complaints. Patient does admit to prior cardiac stents and CABG. - Related Data Home Medications Medication Instructions Recorded Confirmed glipiZIDE [Glucotrol] 2.5 mg PO AC-BID 12/26/13 05/15/22 Aspirin EC [Ecotrin Low Dose] 81 mg PO DAILY 05/15/22 05/15/22 Calcipotriene [Dovonex] 1 applic TOPICAL BID 05/15/22 05/15/22 Calcium Acetate [PhosLo] 667 mg PO TID-W/MEALS 05/15/22 05/15/22 Cholecalciferol [Vitamin D3 (25 25 mcg PO MOWEFR 05/15/22 05/15/22 Mcg = 1000 Iu)] Finasteride [Proscar] 5 mg PO DAILY 05/15/22 05/15/22 Fluoride (Sodium) [Sodium Fluoride] 1 applic DENTAL BID 05/15/22 05/15/22 Fluticasone Nasal [place] [Flonase 1 spr EA NOSTRIL BID 05/15/22 05/15/22 Nasal [place]] Isosorbide Mononitrate ER [Imdur] 60 mg PO DAILY 05/15/22 05/15/22 Mupirocin 2% Oint [Bactroban 2% 1 applic TOPICAL BID 05/15/22 05/15/22 Oint] Omeprazole 40 mg PO DAILY 05/15/22 05/15/22 Polyvinyl Alcohol/Povidone [Clear 1 drop BOTH EYES 5XD 05/15/22 05/15/22 Eyes Natural Tears Drop] Refresh Liquigel 1 drop BOTH EYES HS 05/15/22 05/15/22 Tamsulosin [Flomax] 0.4 mg PO HS 05/15/22 05/15/22 Triamcinolone 0.1% Ointment 1 applic TOPICAL BID PRN 05/15/22 05/15/22 [Kenalog 0.1% Ointment] Urea 20% Cream 1 applic TOPICAL DAILY PRN 05/15/22 05/15/22 carvediloL [Coreg] 6.25 mg PO BID 05/15/22 05/15/22 fluorouraciL [Efudex] 1 applic TOPICAL BID PRN 05/15/22 05/15/22 hydrALAZINE HCL 20 mg PO BID 05/15/22 05/15/22 lisinopriL 2.5 mg PO DAILY 05/15/22 05/15/22 Previous Rx's Medication Instructions Recorded Clopidogrel [Plavix] 75 mg PO DAILY #30 tab 05/17/22 Rosuvastatin 20 mg PO DAILY #30 05/17/22 Allergies Allergy/AdvReac Type Severity Reaction Status Date / Time pravastatin [From Pravachol] [facility] Verified 04/02/24 11:40 records Review of Systems ROS Statement: Those systems with pertinent positive or pertinent negative responses have been documented in the HPI. ROS Other: All systems not noted in ROS Statement are negative. EKG Findings - EKG Comments: EKG Findings:: EKG performed at 11: 51 sinus rhythm with first-degree block rate 61 AL 214 QRS 118 QT/QTc 436/439 - EKG Results: EKG: interpreted by TYRAD Past Medical History Past Medical History: Diabetes Mellitus, Myocardial Infarction ([place]) Additional Past Medical History / Comment(s): neuropathy, right eye bleed Last Myocardial Infarction Date:: 11/15/09 History of Any Multi-Drug Resistant Organisms: None Reported Past Surgical History: Appendectomy, Coronary Bypass/CABG Additional Past Surgical History / Comment(s): right eye Past Psychological History: No Psychological Hx Reported Smoking Status: Never smoker Past Alcohol Use History: Occasional Past Drug Use History: None Reported - Past Family History Mother Family Medical History: Diabetes Mellitus Father Family Medical History: Cancer Additional Family Medical History / Comment(s): LUNG CANCER General Exam Limitations: no limitations General appearance: alert, in no apparent distress Head exam: Present: atraumatic, normocephalic, normal inspection Eye exam: Present: normal appearance, PERRL, EOMI. Absent: scleral icterus, conjunctival injection, periorbital swelling ENT exam: Present: normal exam, normal oropharynx, mucous membranes moist Neck exam: Present: normal inspection, full ROM. Absent: tenderness, meningismus, lymphadenopathy Respiratory exam: Present: normal lung sounds bilaterally. Absent: respiratory distress, wheezes, rales, rhonchi, stridor Cardiovascular Exam: Present: regular rate, normal rhythm, normal heart sounds. Absent: systolic murmur, diastolic murmur, rubs, gallop, clicks Neurological exam: Present: alert, oriented X3, CN II-XII intact Course Vital Signs 04/02/24 04/02/24 04/02/24 11:40 13:04 14:00 Temperature 97.4 F L Pulse Rate 58 L 57 L 58 L Respiratory 18 16 18 Rate Blood Pressure 156/88 143/81 159/93 O2 Sat by Pulse 97 96 97 Oximetry 04/02/24 14:20 Temperature 96.8 F L Pulse Rate 58 L Respiratory 18 Rate Blood Pressure 159/93 O2 Sat by Pulse 97 Oximetry Chest Pain MDM - MDM Was pt. sent in by a medical professional or institution (, PA, [employer], urgent care, hospital, or penitentiary...) When possible be specific @ -No Did you speak to anyone other than the patient for history (EMS, parent, family, police, friend...)? What history was obtained from this source @ -No Did you review nursing and triage notes (agree or disagree)? Why? @ -I reviewed and agree with nursing and triage notes Were old charts reviewed (outside hosp., previous admission, EMS record, old EKG, old radiological studies, urgent care reports/EKG's, penitentiary records)? Report findings @ -No old charts were reviewed Differential Diagnosis (chest pain, altered mental status, abdominal pain women, abdominal pain men, vaginal bleeding, weakness, fever, dyspnea, syncope, headache, dizziness, GI bleed, back pain, seizure, CVA, palpatations, mental health, musculoskeletal)? @Differential Chest Pain: Stable Angina, Unstable Angina, STEMI, NSTEMI Aortic Dissection, Pneumothorax, Musculoskeletal, Esophageal Spasm GERD, Cholecystitis, Pancreatitis, Zoster, this is not meant to be an all-inclusive list. EKG interpreted by me (3pts min.). @ -As above X-rays interpreted by me (1pt min.). @ -Chest x-ray shows no acute cardiopulmonary process CT interpreted by me (1pt min.). @ -None done U/S interpreted by me (1pt. min.). @ -None done What testing was considered but not performed or refused? (CT, X-rays, U/S, labs)? Why? @ -None What meds were considered but not given or refused? Why? @ -None Did you discuss the management of the patient with other professionals (professionals i.e. , PA, [employer], lab, RT, psych nurse, social media content specialist, spool hauler, teacher, commanding officer garage, employment evaluator/case manager)? Give summary @ -No Was smoking cessation discussed for >3mins.? @ -No Was critical care preformed (if so, how long)? @ -No Were there social determinants of health that impacted care today? How? (Homelessness, low income, unemployed, alcoholism, drug addiction, transportation, low edu. Level, literacy, decrease access to med. care, prison, rehab)? @ -No Was there de-escalation of care discussed even if they declined (Discuss DNR or withdrawal of care, Hospice)? DNR status @ -No What co-morbidities impacted this encounter? (DM, HTN, Smoking, COPD, CAD, Cancer, CVA, ARF, Chemo, Hep., AIDS, mental health diagnosis, sleep apnea, morbid obesity)? @ -CAD, CABG Was patient admitted / discharged? Hospital course, mention meds given and route, prescriptions, significant lab abnormalities, going to OR and other pertinent info. @ -Discharge patient presented for right-sided chest and arm pain. Symptoms resolved prior to arrival. Workup at this time does not show any acute findings patient has chronic renal failure did offer, recommend second troponin patient declines states he is asymptomatic he had similar pain to this since had a recent stress test which is negative feel feels comfortable with discharge and close follow-up. Undiagnosed new problem with uncertain prognosis? @ -No Drug Therapy requiring intensive monitoring for toxicity (Heparin, Nitro, Insulin, Cardizem)? @ -No Were any procedures done? @ -No Diagnosis/symptom? @ -Atypical chest pain Acute, or Chronic, or Acute on Chronic? @ -Acute Uncomplicated (without systemic symptoms) or Complicated (systemic symptoms)? @ -Uncomplicated Side effects of treatment? @ -No Exacerbation, Progression, or Severe Exacerbation? @ -No Poses a threat to life or bodily function? How? (Chest pain, [place], [place], pneumonia, PE, COPD, DKA, ARF, appy, cholecystitis, CVA, Diverticulitis, Homicidal, Suicidal, threat to staff... and all critical care pts) @ -No Disposition Clinical Impression: Atypical chest pain Disposition: HOME SELF-CARE Condition: Stable Instructions (If sedation given, give patient instructions): Chest Pain (ED) Additional Instructions: Please return to the Emergency Department if symptoms worsen or any other concerns. Is patient prescribed a controlled substance at d/c from ED?: No Referrals: [facility],Clinic [Primary Care Provider] - 1-2 days Time of Disposition: 14:10
[2024-04-02 14:21] VITALS: BP 159/93; PULSE 58; RESP 18; TEMP 96.8
== END 2024-04-02 14:23 | disposition home or self-care (01) ==
LOC: EC 11:39
DX: R07.89 Other chest pain (principal); I25.10 Atherosclerotic heart disease of native coronary artery without angina pectoris; Z95.1 Presence of aortocoronary bypass graft; Z88.8 Allergy status to other drugs, medicaments and biological substances
CPT/HCPCS: 36415; 71046; 80053; 83735; 83880; 84484; 85025; 85610; 85730; 93005; 99285

== ENCOUNTER 2024-07-28 11:59 | Observation (INO) | payer OTHER ==
[2024-07-28 12:21] LABS: Basophils % (A) 0 %; Eosinophils # (A) 0.5 k/uL (0-0.7); Eosinophils % (A) 6 %; HCT 42.3 % (39.0-53.0); HGB 13.4 gm/dL (13.0-17.5); Lymphocytes % (A) 24 %; MCH 30.5 pg (25.0-35.0); MCHC 31.6 g/dL (31.0-37.0); MCV 96.5 fL (80.0-100.0); Mean Platelet Volume 7.6; Monocytes # (A) 0.5 k/uL (0-1.0); Monocytes % (A) 6 %; Neutrophils # (A) 5.2 k/uL (1.3-7.7); Neutrophils % (A) 62 %; Platelet Count 180 k/uL (150-450); RBC 4.38 m/uL (4.30-5.90); RDW 13.8 % (11.5-15.5); WBC 8.4 k/uL (3.8-10.6)
--- NOTE | 2024-07-28 12:35 | XR ---
EXAMINATION TYPE: XR chest 2V DATE OF EXAM: 07/28/2024 12:24 PM COMPARISON: 04/02/2024 CLINICAL INDICATION: Male, 83 years old with history of Chest Pain: Shortness of breath TECHNIQUE: XR chest 2V views of the chest are obtained. FINDINGS: Scattered senescent parenchymal changes noted. Hyperinflation compatible with COPD. No evidence for infiltrate. No evidence for atelectasis. Heart size is stable. Mediastinal structures are stable and grossly unremarkable. No evidence for hilar prominence. Degenerative changes dorsal spine. IMPRESSION: 1. No evidence for acute pulmonary disease. [facility], , 07/28/2024 12:33 PM
[2024-07-28 12:36] LABS: ALT 11 U/L (4-49); AST 18 U/L (17-59); African American GFR (CKD) 20 (>60 ml/min/1.73 sqM); Albumin 3.9 g/dL (3.5-5.0); Alkaline Phosphatase 70 U/L (38-126); Anion Gap 11 mmol/L; Blood Urea Nitrogen 60 mg/dL (9-20); Calcium 8.6 mg/dL (8.4-10.2); Carbon Dioxide 21 mmol/L (22-30); Chloride 107 mmol/L (98-107); Glucose 147 mg/dL (74-99); Magnesium 1.8 mg/dL (1.6-2.3); Non-African American GFR(CKD) 18 (>60 ml/min/1.73 sqM); Potassium 4.6 mmol/L (3.5-5.1); Sodium 139 mmol/L (137-145); Total Bilirubin 0.7 mg/dL (0.2-1.3); Total Protein 6.2 g/dL (6.3-8.2)
[2024-07-28 12:46] LABS: INR 0.9 (<1.2); Partial Thromboplastin Time 24.2 sec (22.0-30.0); Prothrombin Time 10.6 sec (10.0-12.5)
--- NOTE | 2024-07-28 12:47 | ED ---
General Adult HPI - General Chief complaint: Chest Pain Stated complaint: chest pain Time Seen by Provider: 07/28/24 12:00 Source: patient, RN notes reviewed, old records reviewed Mode of arrival: ambulatory Limitations: no limitations - History of Present Illness Initial comments: This is an 83-year-old male who presents to the emergency department complaining of chest pain. Patient states he has a past medical history significant for stents bypass surgery diabetes high blood pressure high cholesterol. Patient states that chest pain lasted about 15 minutes and it radiated down his left arm and he was mildly diaphoretic. Patient states currently all symptoms have resolved. Patient denies any difficulty breathing or nausea at any time. Patie nt denies any recent fever chills or cough patient [place] any abdominal pain patient [place] any back pain. Patient has any swelling to the legs or calf tenderness - Related Data Home Medications Medication Instructions Recorded Confirmed glipiZIDE [Glucotrol] 2.5 mg PO AC-BID 12/26/13 05/15/22 Aspirin EC [Ecotrin Low Dose] 81 mg PO DAILY 05/15/22 05/15/22 Calcipotriene [Dovonex] 1 applic TOPICAL BID 05/15/22 05/15/22 Calcium Acetate [PhosLo] 667 mg PO TID-W/MEALS 05/15/22 05/15/22 Cholecalciferol [Vitamin D3 (25 25 mcg PO MOWEFR 05/15/22 05/15/22 Mcg = 1000 Iu)] Finasteride [Proscar] 5 mg PO DAILY 05/15/22 05/15/22 Fluoride (Sodium) [Sodium Fluoride] 1 applic DENTAL BID 05/15/22 05/15/22 Fluticasone Nasal [place] [Flonase 1 spr EA NOSTRIL BID 05/15/22 05/15/22 Nasal [place]] Isosorbide Mononitrate ER [Imdur] 60 mg PO DAILY 05/15/22 05/15/22 Mupirocin 2% Oint [Bactroban 2% 1 applic TOPICAL BID 05/15/22 05/15/22 Oint] Omeprazole 40 mg PO DAILY 05/15/22 05/15/22 Polyvinyl Alcohol/Povidone [Clear 1 drop BOTH EYES 5XD 05/15/22 05/15/22 Eyes Natural Tears Drop] Refresh Liquigel 1 drop BOTH EYES HS 05/15/22 05/15/22 Tamsulosin [Flomax] 0.4 mg PO HS 05/15/22 05/15/22 Triamcinolone 0.1% Ointment 1 applic TOPICAL BID PRN 05/15/22 05/15/22 [Kenalog 0.1% Ointment] Urea 20% Cream 1 applic TOPICAL DAILY PRN 05/15/22 05/15/22 carvediloL [Coreg] 6.25 mg PO BID 05/15/22 05/15/22 fluorouraciL [Efudex] 1 applic TOPICAL BID PRN 05/15/22 05/15/22 hydrALAZINE HCL 20 mg PO BID 05/15/22 05/15/22 lisinopriL 2.5 mg PO DAILY 05/15/22 05/15/22 Previous Rx's Medication Instructions Recorded Clopidogrel [Plavix] 75 mg PO DAILY #30 tab 05/17/22 Rosuvastatin 20 mg PO DAILY #30 05/17/22 Allergies Allergy/AdvReac Type Severity Reaction Status Date / Time pravastatin [From Pravachol] Allergy Per [facility] Verified 07/28/24 12:04 records Review of Systems ROS Statement: Those systems with pertinent positive or pertinent negative responses have been documented in the HPI. ROS Other: All systems not noted in ROS Statement are negative. Past Medical History Past Medical History: Diabetes Mellitus, Myocardial Infarction (ME) Additional Past Medical History / Comment(s): neuropathy, right eye bleed Last Myocardial Infarction Date:: 11/15/09 History of Any Multi-Drug Resistant Organisms: None Reported Past Surgical History: Appendectomy, Coronary Bypass/CABG, Heart Catheterization With Stent Additional Past Surgical History / Comment(s): right eye, 4 stents Past Psychological History: No Psychological Hx Reported Smoking Status: Never smoker Past Alcohol Use History: Occasional Past Drug Use History: None Reported - Past Family History Mother Family Medical History: Diabetes Mellitus Father Family Medical History: Cancer Additional Family Medical History / Comment(s): LUNG CANCER General Exam - General Exam Comments Initial Comments: GENERAL: Patient is well-developed and well-nourished. Patient is nontoxic and well- hydrated and is in mild distress. ENT: Neck is soft and supple. No significant lymphadenopathy is noted. Oropharynx is clear. Moist mucous membranes. Neck has full range of motion without elici ting any pain. EYES: The sclera were anicteric and conjunctiva were pink and moist. Extraocular m ovements were intact and pupils were equal round and reactive to light. Eyelids were unremarkable. PULMONARY: Unlabored respirations. Good breath sounds bilaterally. No audible rales rhonchi or wheezing was noted. CARDIOVASCULAR: There is a regular rate and rhythm without any murmurs gallops or rubs. ABDOMEN: Soft and nontender with normal bowel sounds. SKIN: Skin is clear with no lesions or rashes and otherwise unremarkable. NEUROLOGIC: Patient is alert and oriented x3. Cranial nerves II through XII are grossly intact. Motor and sensory are also intact. Normal speech, volume and content. Symmetrical smile. MUSCULOSKELETAL: Normal extremities with adequate strength and full range of motion. No lower extremity swelling or edema. No calf tenderness. LYMPHATICS: No significant lymphadenopathy is noted PSYCHIATRIC: Normal psychiatric evaluation. Limitations: no limitations Course Vital Signs 07/28/24 12:01 Temperature 97.4 F L Pulse Rate 65 Respiratory 20 Rate Blood Pressure 146/86 O2 Sat by Pulse 96 Oximetry Medical Decision Making - Medical Decision Making EKG is interpreted by myself. EKG shows a sinus rhythm at 73 bpm GA was 218 QRS is 112 QT interval 409 QTc is 435. Patient's EKG shows no ST segment elevation or depression patient does have Q waves inferior leads. Was pt. sent in by a medical professional or institution (ROBERTA Engel, ELECTROMECHANICAL ASSEMBLY TECHNICIAN, urgent care, hospital, or correction...) When possible be specific @ -No Did you speak to anyone other than the patient for history (EMS, parent, family, police, friend...)? What history was obtained from this source @ -No Did you review nursing and triage notes (agree or disagree)? Why? @ -I reviewed and agree with nursing and triage notes Were old charts reviewed (outside hosp., previous admission, EMS record, old EKG, old radiological studies, urgent care reports/EKG's, correction records)? Report findings @ -No old charts were reviewed Differential Diagnosis? @ -Differential Chest Pain: Stable Angina, Unstable Angina, STEMI, NSTEMI Aortic Dissection, Pneumothorax, Musculoskeletal, Esophageal Spasm GERD, Cholecystitis, Pancreatitis, Zoster, this is not meant to be an all-inclusive list. EKG interpreted by me (3pts min.). @ -As above X-rays interpreted by me (1pt min.). @ -Chest x-ray showed no acute abnormality CT interpreted by me (1pt min.). @ -None done U/S interpreted by me (1pt. min.). @ -None done What testing was considered but not performed or refused? (CT, X-rays, U/S, labs)? Why? @ -None What meds were considered but not given or refused? Why? @ -None Did you discuss the management of the patient with other professionals (clint jurado i.e. , PA, ELECTROMECHANICAL ASSEMBLY TECHNICIAN, lab, RT, psych nurse, dialysis social worker, supervisor electronics testing, teacher, forest fire control officer, window caser)? Give summary @ -I spoke with [facility], [place] [facility] agreed to admit the patient admit the patient recommending orders Was smoking cessation discussed for >3mins.? @ -No Was critical care preformed (if so, how long)? @ -No Were there social determinants of health that impacted care today? How? (Homelessness, low income, unemployed, alcoholism, drug addiction, transportation, low edu. Level, literacy, decrease access to med. care, detention, rehab)? @ -No Was there de-escalation of care discussed even if they declined (Discuss DNR or withdrawal of care, Hospice)? DNR status @ -No What co-morbidities impacted this encounter? (DM, HTN, Smoking, COPD, CAD, Cancer, CVA, ARF, Chemo, Hep., AIDS, mental health diagnosis, sleep apnea, morbid obesity)? @ -None Was patient admitted / discharged? Hospital course, mention meds given and route, prescriptions, significant lab abnormalities, going to OR and other pertinent info. @ -Patient had no chest pain when I interviewed him and he had no chest pain throughout his ED course. Patient's lab work showed no acute normality x-ray showed no acute abnormality. Patient will be admitted to [facility], [place] [facility] for chest pain and have a cardiology consult Undiagnosed new problem with uncertain prognosis? @ -No Drug Therapy requiring intensive monitoring for toxicity (Heparin, Nitro, Insulin, Cardizem)? @ -No Were any procedures done? @ -No Diagnosis/symptom? @ -Chest pain Acute, or Chronic, or Acute on Chronic? @ -Acute Uncomplicated (without systemic symptoms) or Complicated (systemic symptoms)? @ -Complicated Side effects of treatment? @ -No Exacerbation, Progression, or Severe Exacerbation? @ -No Poses a threat to life or bodily function? How? (Chest pain, USA, ME, pneumonia, PE, COPD, DKA, ARF, appy, cholecystitis, CVA, Diverticulitis, Homicidal, Suicidal, threat to staff... and all critical care pts) @ -This could lead to an ME and endorgan dysfunction - Lab Data Result diagrams: 07/28/24 12:12 07/28/24 12:12 Lab Results 07/28/24 07/28/24 07/28/24 Range/Units 12:12 12:12 12:12 WBC 8.4 (3.8-10.6) k/uL RBC 4.38 (4.30-5.90) m/uL Hgb 13.4 (13.0-17.5) gm/dL Hct 42.3 (39.0-53.0) % MCV 96.5 (80.0-100.0) fL MCH 30.5 (25.0-35.0) pg MCHC 31.6 (31.0-37.0) g/dL RDW 13.8 (11.5-15.5) % Plt Count 180 (150-450) k/uL MPV 7.6 Neutrophils % 62 % Lymphocytes % 24 % Monocytes % 6 % Eosinophils % 6 % Basophils % 0 % Neutrophils # 5.2 (1.3-7.7) k/uL Lymphocytes # 2.0 (1.0-4.8) k/uL Monocytes # 0.5 (0-1.0) k/uL Eosinophils # 0.5 (0-0.7) k/uL Basophils # 0.0 (0-0.2) k/uL PT 10.6 (10.0-12.5) sec INR 0.9 (<1.2) APTT 24.2 (22.0-30.0) sec Sodium 139 (137-145) mmol/L Potassium 4.6 (3.5-5.1) mmol/L Chloride 107 (98-107) mmol/L Carbon Dioxide 21 L (22-30) mmol/L Anion Gap 11 mmol/L BUN 60 H (9-20) mg/dL Creatinine 3.11 H (0.66-1.25) mg/dL Est GFR (CKD-EPI)AfAm 20 (>60 ml/min/1.73 sqM) Est GFR (CKD-EPI)NonAf 18 (>60 ml/min/1.73 sqM) Glucose 147 H (74-99) mg/dL Calcium 8.6 (8.4-10.2) mg/dL Magnesium 1.8 (1.6-2.3) mg/dL Total Bilirubin 0.7 (0.2-1.3) mg/dL AST 18 (17-59) U/L ALT 11 (4-49) U/L Alkaline Phosphatase 70 (38-126) U/L Troponin I (0.000-0.034) ng/mL Total Protein 6.2 L (6.3-8.2) g/dL Albumin 3.9 (3.5-5.0) g/dL 07/28/24 Range/Units 12:12 WBC (3.8-10.6) k/uL RBC (4.30-5.90) m/uL Hgb (13.0-17.5) gm/dL Hct (39.0-53.0) % MCV (80.0-100.0) fL MCH (25.0-35.0) pg MCHC (31.0-37.0) g/dL RDW (11.5-15.5) % Plt Count (150-450) k/uL MPV Neutrophils % % Lymphocytes % % Monocytes % % Eosinophils % % Basophils % % Neutrophils # (1.3-7.7) k/uL Lymphocytes # (1.0-4.8) k/uL Monocytes # (0-1.0) k/uL Eosinophils # (0-0.7) k/uL Basophils # (0-0.2) k/uL PT (10.0-12.5) sec INR (<1.2) APTT (22.0-30.0) sec Sodium (137-145) mmol/L Potassium (3.5-5.1) mmol/L Chloride (98-107) mmol/L Carbon Dioxide (22-30) mmol/L Anion Gap mmol/L BUN (9-20) mg/dL Creatinine (0.66-1.25) mg/dL Est GFR (CKD-EPI)AfAm (>60 ml/min/1.73 sqM) Est GFR (CKD-EPI)NonAf (>60 ml/min/1.73 sqM) Glucose (74-99) mg/dL Calcium (8.4-10.2) mg/dL Magnesium (1.6-2.3) mg/dL Total Bilirubin (0.2-1.3) mg/dL AST (17-59) U/L ALT (4-49) U/L Alkaline Phosphatase (38-126) U/L Troponin I 0.015 (0.000-0.034) ng/mL Total Protein (6.3-8.2) g/dL Albumin (3.5-5.0) g/dL Disposition Clinical Impression: Chest pain Disposition: ADMITTED IP TO THIS HOSP Referrals: Joe Juan DO [Primary Care Provider] - 1-2 days Time of Disposition: 13:24
[2024-07-28] MEDS ORDERED: NITROGLYCERIN SL TABS 0.4 MG TAB SUBLINGUAL PRN (13:25)
[2024-07-28] MEDS ORDERED: DEXTROSE 50% SYRINGE 50 ML IVP PRN ×2 (14:23)
--- NOTE | 2024-07-28 14:53 | P.HPIM ---
History of Present Illness H&P Date: 07/28/24 Patient is a 83-year-old male with CAD (4 stents placements and coronary bypass), hypertension, hyperlipidemia, CKD and diabetes here for evaluation of chest pain. Patient reported that he had experienced chest pain with a squeezing nature radiated to the left arm for 15 minutes with an intensity of 4 out of 10. He reported associated diaphoresis. At current he is not experiencing any chest pain. He denied palpitations, shortness of breath, calf pain, extremity swelling, fever, chills, cough, recent illness, send hospitalization, abdominal pain, focal weakness, changes in speech, changes in vision, facial symmetry. On admission, EKG independently interpreted showed sinus rhythm with a rate of 73, first-degree AV block with a DC interval of 218 MS, noted PACs, normal axis nonsignificant ST-T changes, QTc 435 MS. Chest x-ray showed no acute evidence for acute pulmonary disease. On admission, labs showed WBC 8.4, hemoglobin 13.5, platelet count 1 90,000, PT 10.6, INR 0.9, PTT 24.2, sodium 139, potassium 4.6, bicarb 21, BUN 60, creatinine 3.11, glucose 147, calcium 8.6, magnesium 1.8, AST 18, ALT 11, alk phos 70, troponin 0.015, albumin 3.9. Vitals on admission showed temperature 37.4, pulse rate 65, respiratory rate 20, blood pressure 146/86, O2 saturation 96% on room air ED documentation reviewed. High-dose aspirin and nitroglycerin as needed given in the ED. Review of systems: Pertinent positives and negatives as discussed in HPI, a complete review of systems was performed and all other systems are negative. Social history: Tobacco: Occasionally smokes a cigar. He used to smoke pipe. Alcohol: Occasional alcohol intake Recreational drugs: Denies recreational or illicit drug use Travel: No recent travel Occupation: None Physical examination: Vital signs reviewed General: non toxic, no distress, appears at stated age, on room air Derm: no unusual rashes/lesions, warm Head: atraumatic, normocephalic, symmetric Eyes: EOMI, anicteric sclera, pupils equal round reactive to light ENT: Nose and ears atraumatic Neck: No cervical lymphadenopathy, trachea midline, supple Mouth: no lip lesion, mucus membranes moist Cardiovascular: S1S2 reg, no murmur Lungs: CTA bilateral, no rhonchi, no rales, no accessory muscle use Abdominal: soft, nondistended, nontender to palpation, no guarding Ext: muscle strength 5 out of 5 in all 4 extremities grossly, no gross muscle atrophy, no contractures, positive dorsalis pedis pulse bilateral, no edema Neuro: CN II-XI grossly intact, no gross focal neuro deficits Psych: Alert and oriented x 3, appropriate affect and mood Assessment/Plan: 83-year-old male with extensive CAD, diabetes, CKD here for evaluation of chest pain #. Chest pain, r/o ACS #. Ischemic cardiomyopathy with a EF of 40% last known in 04/2022 -EKG independently interpreted showed sinus rhythm with a rate of 73, first-de gree AV block with a DC interval of 218 MS, noted PACs, normal axis nonsignificant ST-T changes, QTc 435 MS -Chest x-ray showed no acute evidence for acute pulmonary disease -Cardiac monitoring -Supplemental oxygen as needed -Heart healthy diet -Trend troponin -EKG as needed -Nitroglycerin prn for chest pain. 0.4 mg PO or Nitrobid topical -Given aspirin 325 mg once in the ED -Continue with aspirin 81 mg daily -Continue lipitor 40 mg daily -Metoprolol tartarate 12.5mg PO twice daily held for now due to borderline heart rate and AV Block -Check lipid panel -Check A1c -Echocardiogram ordered. Last known echocardiogram on 04/2022 with an EF of 40% -Cardiology consulted #. CKD stage 4, at baseline -Creatinine 3.11 -Monitor BMP #. Diabetes mellitus with hyperglycemia -Glucose 147 -Check Hemoglobin A1c -Hold home medications -Glucose Accu-Cheks ACHS -Initiate Insulin sliding scale ACHS -Monitor for hypoglycemia Chronic Conditions: #. Hypertension #. Hyperlipidemia -Resume home meds once reconciled F: Oral intake E: None for now N: Heart healthy diet A: Can self ambulate DVT ppx: Heparin SQ every 8 hours Dispo: The patient is admitted as observation with an anticipated less than 2 midnight stay for evaluation of chest pain CODE STATUS: Full Discussed with: Patient Anticipated discharge place: Home Kristi Torres MD PGY-1 IM Dictation was produced using [employer] dictation software. please excuse any grammatical, word or spelling errors. I have seen and evaluated the patient today. Discussed with the resident and agree with the residents finding and plan as documented in the resident's note. Changes highlighted in blue font. Past Medical History Past Medical History: Diabetes Mellitus, Myocardial Infarction ([place]) Additional Past Medical History / Comment(s): neuropathy, right eye bleed Last Myocardial Infarction Date:: 11/15/09 History of Any Multi-Drug Resistant Organisms: None Reported Past Surgical History: Appendectomy, Coronary Bypass/CABG, Heart Catheterization With Stent Additional Past Surgical History / Comment(s): right eye, 4 stents Past Psychological History: No Psychological Hx Reported Smoking Status: Never smoker Past Alcohol Use History: Occasional Past Drug Use History: None Reported - Past Family History Mother Family Medical History: Diabetes Mellitus Father Family Medical History: Cancer Additional Family Medical History / Comment(s): LUNG CANCER Medications and Allergies Home Medications Medication Instructions Recorded Confirmed Type Aspirin EC [Ecotrin Low Dose] 81 mg PO DAILY 05/15/22 07/28/24 History Finasteride [Proscar] 5 mg PO DAILY 05/15/22 07/28/24 History Tamsulosin [Flomax] 0.4 mg PO HS 05/15/22 07/28/24 History Empagliflozin [Jardiance] 5 mg PO DAILY 07/28/24 07/28/24 History Famotidine [Pepcid] 40 mg PO BID 07/28/24 07/28/24 History Ipratropium [place] [Ipratropium 1 spray EA NOSTRIL BID 07/28/24 07/28/24 History [place] 0.03%] Isosorbide Mononitrate ER [Imdur] 90 mg PO DAILY 07/28/24 07/28/24 History Metoprolol Succinate (ER) [Toprol 12.5 mg PO DAILY 07/28/24 07/28/24 History Xl] Nitroglycerin Sl Tabs [Nitrostat] 0.4 mg SUBLINGUAL Q5M PRN 07/28/24 07/28/24 History Rosuvastatin [Crestor] 10 mg PO HS 07/28/24 07/28/24 History glipiZIDE [Glucotrol] 2.5 mg PO AC-BID 07/28/24 07/28/24 History Allergies Allergy/AdvReac Type Severity Reaction Status Date / Time pravastatin [From Pravachol] Allergy Unknown Verified 07/28/24 16:22 Physical Exam Vitals: Vital Signs Temp Pulse Resp BP Pulse Ox 07/28/24 12:01 97.4 F L 65 20 146/86 96 Intake and Output 07/27/24 07/28/24 07/28/24 22:59 06:59 14:59 Other: Weight 81.647 kg Results CBC & Chem 7: 07/28/24 12:12 07/28/24 12:12 Labs: Abnormal Lab Results - Last 24 Hours (Table) 07/28/24 Range/Units 12:12 Carbon Dioxide 21 L (22-30) mmol/L BUN 60 H (9-20) mg/dL Creatinine 3.11 H (0.66-1.25) mg/dL Glucose 147 H (74-99) mg/dL Total Protein 6.2 L (6.3-8.2) g/dL
[2024-07-28] MEDS: HEPARIN SODIUM,PORCINE 5,000 UNIT/ML 1 ML VIAL SQ SCH (15:22)
[2024-07-28 16:59] LABS: Glucose,Whole Blood 171 mg/dL (70-110)
[2024-07-28] MEDS: INSULIN LISPRO (HumaLOG) 100 UNIT/ML 10 mL VL SQ SCH (17:21)
[2024-07-28] MEDS ORDERED: NITROGLYCERIN OINT 1 INCH/GM PACKET TOPICAL SCH (18:00)
[2024-07-28] MEDS: ATORVASTATIN 40 MG TAB PO SCH (20:08)
[2024-07-28 22:44] LABS: Glucose,Whole Blood 110 mg/dL (70-110)
[2024-07-29 05:34] LABS: Glucose,Whole Blood 84 mg/dL (70-110)
[2024-07-29 06:53] VITALS: RESP 16; TEMP 97.8
[2024-07-29] MEDS ORDERED: ASPIRIN 325 MG TAB PO SCH (09:00)
[2024-07-29] MEDS ORDERED: NON FORMULARY DRUG (Aspirin Ec 81 MG Tablet) PO SCH (09:00)
[2024-07-29 09:35] VITALS: BP 149/78; PULSE 68
[2024-07-29] MEDS: ASPIRIN 81 MG PO SCH (10:23)
[2024-07-29] MEDS: DAPAGLIFLOZIN PROPANEDIOL 5 MG TABLET PO SCH (10:23)
[2024-07-29] MEDS: RANOLAZINE 500 MG TAB.ER.12H PO SCH (10:23)
[2024-07-29] MEDS: FAMOTIDINE 20 MG TAB PO SCH (10:23)
[2024-07-29] MEDS: METOPROLOL SUCCINATE (ER) 25 MG TAB.ER.24H PO SCH (10:23)
[2024-07-29] MEDS: ISOSORBIDE MONONITRATE ER 30 MG TAB.ER.24H PO SCH (10:23)
[2024-07-29] MEDS: FINASTERIDE 5 MG TAB PO SCH (10:24)
--- NOTE | 2024-07-29 11:16 | P.CRDCN ---
History of Present Illness Consult date: 07/29/24 Consult reason: chest pain History of present illness: This is an 83-year-old male patient follows with sales and training specialist, Dr. 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 We have been asked to evaluate the patient for chest pain. Patient states that at [facility], he recently underwent echocardiogram and stress test. He states that stress test was reported to him as normal. He states at the time he was having similar pain today but it was on the right side of his chest. He also had increase in his Imdur to 90 mg. Now patient presents to the hospital with chest pain on the left side with radiation down his left arm. He also had some slight shortness of breath. He he denies any lower extremity edema, no palpitations, no fever, no nausea or vomiting, he denies history of smoking. The pain lasted about 15 minutes and now it completely resolved. He has no chest pain at this time. He did not use nitroglycerin. Blood pressure 149/78, heart rate 68, pulse ox 97% on room air. -EKG: Sinus rhythm with PACs and nonspecific ST changes in previous inferior wall IN -Chest x-ray: No acute process -Laboratory studies: CBC, INR within normal limits. BUN 60 creatinine 3.11. Troponin negative x 3. -Home cardiac medications: Jardiance 5 mg daily, Imdur 90 mg daily, Toprol XL 12.5 mg daily, Nitrostat as needed, rosuvastatin 10 mg at bedtime. -Echocardiogram performed 04/2022 revealed impaired LV function with EF around 40%. Review Of Systems: At the time of my exam: CONSTITUTIONAL: Denies fever or chills. HEENT: Denies blurred vision, vision changes, or eye pain. Denies hemoptysis CARDIOVASCULAR: Denies chest pain. Denies orthopnea. Denies PND. Denies palpitations RESPIRATORY: Denies shortness of breath. GASTROINTESTINAL: Denies abdominal pain. Denies nausea or vomiting. HEMATOLOGIC: Denies bleeding disorders. GENITOURINARY: Denies any blood in urine. SKIN: Denies puritis. Denies rash. Physical examination: Gen: This is an 83-year-old male in no acute distress VS: reviewed HEENT: Head is atraumatic, normocephalic. Pupils equal, round. Sclerae is anicteric. NECK: Supple. No JVD. LUNGS: Clear to auscultation. No wheezes or rhonchi. No intercostal retractions. HEART: Regular rate and rhythm. Systolic murmur. ABDOMEN: Soft No tenderness. EXTREMITIES: No pedal edema. No calf tenderness. NEUROLOGICAL: Patient is awake, alert and oriented x3. Assessment: Chest pain suggestive of angina History of coronary artery disease with history of PCI followed by four-vessel CABG 14 to 15 years ago Chronic kidney disease stage IV from agent orange Hyperlipidemia Diabetes mellitus type 2, uncontrolled with A1c of 7.7 Chronic systolic heart failure Ischemic cardiomyopathy Plan: Resume patient's home cardiac medications Continue the recently increased dose of Imdur 90 mg daily Add Ranexa 500 mg twice daily Obtain recent stress test report from [facility] Obtain 2-D echocardiogram and Doppler study to assess cardiac structure and function Plan to optimize medical management due to patient's chronic renal failure. No plan for cardiac catheterization at this point. Further recommendations to follow based upon clinical course Thank you kindly for this consultation. Nurse practitioner note has been reviewed, I agree with documented findings and plan of care. Patient was seen and examined. Past Medical History Past Medical History: Diabetes Mellitus, Myocardial Infarction ([place]) Additional Past Medical History / Comment(s): neuropathy, right eye bleed Last Myocardial Infarction Date:: 11/15/09 History of Any Multi-Drug Resistant Organisms: None Reported Past Surgical History: Appendectomy, Coronary Bypass/CABG, Heart Catheterization With Stent Additional Past Surgical History / Comment(s): right eye, 4 stents Past Anesthesia/Blood Transfusion Reactions: No Reported Reaction Date of Last Stent Placement:: 2009 Past Psychological History: No Psychological Hx Reported Smoking Status: Never smoker Past Alcohol Use History: Occasional Past Drug Use History: None Reported - Past Family History Mother Family Medical History: Diabetes Mellitus Father Family Medical History: Cancer Additional Family Medical History / Comment(s): LUNG CANCER Medications and Allergies Home Medications Medication Instructions Recorded Confirmed Type Aspirin EC [Ecotrin Low Dose] 81 mg PO DAILY 05/15/22 07/28/24 History Finasteride [Proscar] 5 mg PO DAILY 05/15/22 07/28/24 History Tamsulosin [Flomax] 0.4 mg PO HS 05/15/22 07/28/24 History Empagliflozin [Jardiance] 5 mg PO DAILY 07/28/24 07/28/24 History Famotidine [Pepcid] 40 mg PO BID 07/28/24 07/28/24 History Ipratropium [facility] [Ipratropium 1 spray EA NOSTRIL BID 07/28/24 07/28/24 History [facility] 0.03%] Isosorbide Mononitrate ER [Imdur] 90 mg PO DAILY 07/28/24 07/28/24 History Metoprolol Succinate (ER) [Toprol 12.5 mg PO DAILY 07/28/24 07/28/24 History Xl] Nitroglycerin Sl Tabs [Nitrostat] 0.4 mg SUBLINGUAL Q5M PRN 07/28/24 07/28/24 History Rosuvastatin [Crestor] 10 mg PO HS 07/28/24 07/28/24 History glipiZIDE [Glucotrol] 2.5 mg PO AC-BID 07/28/24 07/28/24 History Allergies Allergy/AdvReac Type Severity Reaction Status Date / Time pravastatin [From Pravachol] Allergy Unknown Verified 07/28/24 16:22 Physical Exam Vitals: Vital Signs Temp Pulse Pulse Resp BP BP Pulse Ox 07/29/24 05:30 97.8 F 59 L 16 167/77 98 07/29/24 00:03 53 L 07/28/24 23:37 97.5 F L 53 L 18 168/87 99 07/28/24 23:13 65 18 148/82 95 07/28/24 22:43 59 L 18 07/28/24 20:11 59 L 17 154/75 94 L 07/28/24 17:45 98 F 75 15 132/76 96 07/28/24 13:23 98 F 64 16 141/84 95 07/28/24 12:01 97.4 F L 65 20 146/86 96 Intake and Output 07/28/24 07/29/24 07/29/24 22:59 06:59 14:59 Other: Voiding Method Toilet # Voids 2 Weight 81.647 kg Results 07/28/24 12:12 07/28/24 12:12 Cardiac Enzymes 07/28/24 07/28/24 07/28/24 Range/Units 12:12 12:12 14:31 AST 18 (17-59) U/L Troponin I 0.015 0.014 (0.000-0.034) ng/mL 07/28/24 Range/Units 17:46 AST (17-59) U/L Troponin I 0.012 (0.000-0.034) ng/mL Coagulation 07/28/24 Range/Units 12:12 PT 10.6 (10.0-12.5) sec APTT 24.2 (22.0-30.0) sec CBC 07/28/24 Range/Units 12:12 WBC 8.4 (3.8-10.6) k/uL RBC 4.38 (4.30-5.90) m/uL Hgb 13.4 (13.0-17.5) gm/dL Hct 42.3 (39.0-53.0) % Plt Count 180 (150-450) k/uL Comprehensive Metabolic Panel 07/28/24 Range/Units 12:12 Sodium 139 (137-145) mmol/L Potassium 4.6 (3.5-5.1) mmol/L Chloride 107 (98-107) mmol/L Carbon Dioxide 21 L (22-30) mmol/L BUN 60 H (9-20) mg/dL Creatinine 3.11 H (0.66-1.25) mg/dL Glucose 147 H (74-99) mg/dL Calcium 8.6 (8.4-10.2) mg/dL AST 18 (17-59) U/L ALT 11 (4-49) U/L Alkaline Phosphatase 70 (38-126) U/L Total Protein 6.2 L (6.3-8.2) g/dL Albumin 3.9 (3.5-5.0) g/dL Current Medications Generic Name Dose Route Start Last Admin Trade Name Freq PRN Reason Stop Dose Admin Aspirin 81 mg 07/29/24 09:00 Aspirin 81 Mg PO DAILY YOEL Atorvastatin Calcium 40 mg 07/28/24 21:00 07/28/24 20:08 Atorvastatin 40 Mg Tab PO Not Given HS YOEL Dextrose/Water 25 ml 07/28/24 14:23 Dextrose 50% Syringe 50 Ml IVP PER PROTOCOL PRN Hypoglycemia Protocol Dextrose/Water 50 ml 07/28/24 14:23 Dextrose 50% Syringe 50 Ml IVP PER PROTOCOL PRN Hypoglycemia Protocol Heparin Sodium (Porcine) 5,000 unit 07/28/24 16:00 07/29/24 01:23 Heparin Sodium,Porcine 5,000 Unit/Ml 1 Ml Vial SQ Not Given Q8HR [facility]–1983 Insulin Human Lispro 0 unit 07/28/24 17:30 07/29/24 05:34 Insulin Lispro (Humalog) 100 Unit/Ml 10 Ml Vl SQ Not Given ACHS [facility]1983 Protocol Nitroglycerin 0.4 mg 07/28/24 13:25 Nitroglycerin Sl Tabs 0.4 Mg Tab SUBLINGUAL Q5M PRN Chest Pain Intake and Output 07/28/24 07/29/24 07/29/24 22:59 06:59 14:59 Other: Voiding Method Toilet # Voids 2 Weight 81.647 kg 07/28/24 12:12 07/28/24 12:12
[2024-07-29 11:32] LABS: Chol/HDL Ratio 2.34 Ratio; LDL Cholesterol,Calculated 47.6 mg/dL (0.0-131.0); VLDL Calculation 15.92 mg/dL (5.00-40.00)
[2024-07-29 12:43] LABS: Glucose,Whole Blood 158 mg/dL (70-110)
--- NOTE | 2024-07-29 13:22 | CA ---
Transthoracic Echo Report Name: Rick Mcclellan Age: 83 Gender: M : 1940 Exam Date: 07/29/2024 07:52 Exam Location: [facility] Echo Ht (in): 69 Wt (lb): 180 Ordering Physician: Kristi Torres MD Attending/Referring Phys: Senior Grants Officer Leigh Dahl RDCS Procedure CPT: Indications: Chest Pain Cardiac Hx: Technical Quality: Fair Contrast 1: Definity Total Dose (mL): 70 Contrast 2: Total Dose (mL): MEASUREMENTS (Male / Female) Normal Values 2D ECHO LV Diastolic Diameter PLAX 5.2 cm 4.2 - 5.9 / 3.9 - 5.3 cm LV Systolic Diameter PLAX 4.0 cm IVS Diastolic Thickness 1.3 cm 0.6 - 1.0 / 0.6 - 0.9 cm LVPW Diastolic Thickness 1.1 cm 0.6 - 1.0 / 0.6 - 0.9 cm LV Relative Wall Thickness 0.5 RV Internal Dim ED PLAX 2.9 cm LA Systolic Diameter LX 5.0 cm 3.0 - 4.0 / 2.7 - 3.8 cm LA Volume 70.5 cm??? 18 - 58 / 22 - 52 cm??? LA Volume Index 35.1 cm???/m??? 16 - 28 cm???/m??? M-MODE Aortic Root Diameter MM 3.1 cm LA Systolic Diameter MM 4.3 cm LA Ao Ratio MM 1.4 AV Cusp Separation MM 2.0 cm DOPPLER MV Area PHT 2.5 cm??? Mitral E Point Velocity 44.9 cm/s Mitral A Point Velocity 98.3 cm/s Mitral E to A Ratio 0.5 MV Deceleration Time 300.5 ms TR Peak Velocity 164.8 cm/s TR Peak Gradient 10.9 mmHg FINDINGS Left Ventricle Left ventricular ejection fraction is estimated at 30-35%. Mildly increased left ventricular wall thickness. . Left ventricular cavity size normal. Severely reduced global left ventricular systolic function., more noted on the inferior wall Right Ventricle Normal right ventricular size and function. Right ventricular systolic pressure within normal limits. Right Atrium Normal right atrial size. Highly mobile interatrial septum Left Atrium Moderately increased left atrial diameter. Moderately increased left atrial volume. Mildly increased left atrial area. Mitral Valve Structurally normal mitral valve. Moderate mitral regurgitation. No mitral stenosis.mitral annular calcification. Aortic Valve Trileaflet aortic valve. Diffuse thickening (sclerosis) of the aortic valve cusps without reduced excursion. Mild aortic regurgitation. Tricuspid Valve Structurally normal tricuspid valve. Mild tricuspid regurgitation. No tricuspid stenosis. Pulmonic Valve Structurally normal pulmonic valve. Trace to mild pulmonic regurgitation. No pulmonic stenosis. Pericardium No pericardial or pleural effusion. Aorta Normal size aortic root and proximal ascending aorta. CONCLUSIONS Definity ECHO contrast used for improved visualization of the endocardial borders (inadequate visualization of two or more contiguous segments). Severe global hypokinesis of the left ventricle, more noted on the inferior wall Moderate mitral regurgitation Mild aortic and tricuspid regurgitation Previewed by: Dr. Tyrell Olivo MD (Electronically Signed) Final Date: 29 July 2024 13:21
--- NOTE | 2024-07-29 16:56 | P.DS ---
Providers Date of admission: 07/28/24 13:26 Expected date of discharge: 07/29/24 Attending physician: Ken Fitzpatrick Consults: 07/28/24 13:25 Consult Physician Urgent Consulting Provider: [facility] Consult Reason/Comments: Chest pain Do you want consulting provider notified?: Yes Primary care physician: Joe Springfield Hospital Course: Hospital Course: Patient is a 83-year-old male with CAD (4 stents placements and coronary bypass), hypertension, hyperlipidemia, CKD and diabetes here for evaluation of chest pain. On admission, EKG independently interpreted showed sinus rhythm with a rate of 73, first-degree AV block with a VT interval of 218 MS, noted PACs, normal axis nonsignificant ST-T changes, QTc 435 MS. Chest x-ray showed no acute evidence for acute pulmonary disease. On admission, labs showed WBC 8.4, hemoglobin 13.5, platelet count 1 90,000, PT 10.6, INR 0.9, PTT 24.2, sodium 139, potassium 4.6, bicarb 21, BUN 60, creatinine 3.11, glucose 147, calcium 8.6, magnesium 1.8, AST 18, ALT 11, alk phos 70, troponin 0.015, albumin 3.9. Vitals on admission showed temperature 37.4, pulse rate 65, respiratory rate 20, blood pressure 146/86, O2 saturation 96% on room air ED documentation reviewed. High-dose aspirin and nitroglycerin as needed given in the ED. Patient is admitted for new evaluation of chest pain to rule out ACS. Ordered trending troponins, nitroglycerin for chest pain as needed, high-dose aspirin, high intensity statin, lipid panel, A1c, echocardiogram, cardiac monitoring. Cardiology consulted. Requested recent echo done in a different facility has found to have ejection fraction of 45 to 50% with normal left ventricular size normal thickness and mid left ventricular systolic dysfunction. Patient also had recent stress echo at outside facility that did not show any inducible ischemia. Echocardiogram done in our facility showed left ventricular ejection fraction estimated 30 to 35% with left ventricular wall thickness and normal ventricular cavity size with severely reduced global left ventricular systolic function. Troponins trended were all normal, lipid panel at normal levels, A1c at 7.7. Patient symptoms improved throughout hospital stay. Patient did not develop any new complications throughout hospital stay. Patient was also seen by cardiology, recommended outpatient follow-up with his own grey goods tester. Also advised to follow-up with PCP . He is prescribed ranolazine 500 mg p.o. Advised to resume the rest of his home medications. Final Diagnosis: #. Chest pain, ACS ruled out #. Ischemic cardiomyopathy with a EF of 40% last known in 04/2022 #. CKD stage 4, at baseline #. Diabetes mellitus with hyperglycemia #. Hypertension #. Hyperlipidemia Physical examination: Vital signs reviewed General: non toxic, no distress Derm: no unusual rashes/lesions, warm Head: atraumatic, normocephalic, symmetric Eyes: EOMI, anicteric sclera, pupils equal round reactive to light ENT: Nose and ears atraumatic Neck: No cervical lymphadenopathy, trachea midline, supple Mouth: no lip lesion, mucus membranes moist Cardiovascular: S1S2 reg, no murmur Lungs: CTA bilateral, no rhonchi, no rales, no accessory muscle use Abdominal: soft, nondistended, nontender to palpation, no guarding Ext: muscle strength 5 out of 5 in all 4 extremities grossly, no gross muscle atrophy, no contractures, positive dorsalis pedis pulse bilateral, no edema Neuro: CN II-XI grossly intact, no gross focal neuro deficits Psych: Alert, oriented, appropriate affect and mood A total of 36 minutes of time were spent preparing this complex discharge summary. Patient was discharged on 07/29/24 at 1429. I have seen and evaluated the patient today. Discussed with the resident and agree with the residents finding and plan as documented in the resident's note. Changes highlighted in blue font. Patient Condition at Discharge: Good Plan - Discharge Summary Discharge Rx Participant: No New Discharge Prescriptions: New Ranolazine [Ranexa] 500 mg PO Q12HR #60 tab Continue Aspirin EC [Ecotrin Low Dose] 81 mg PO DAILY Tamsulosin [Flomax] 0.4 mg PO HS Rosuvastatin [Crestor] 10 mg PO HS Isosorbide Mononitrate ER [Imdur] 90 mg PO DAILY Finasteride [Proscar] 5 mg PO DAILY Nitroglycerin Sl Tabs [Nitrostat] 0.4 mg SUBLINGUAL Q5M PRN PRN Reason: Chest Pain glipiZIDE [Glucotrol] 2.5 mg PO AC-BID Empagliflozin [Jardiance] 5 mg PO DAILY Metoprolol Succinate (ER) [Toprol XL] 12.5 mg PO DAILY Ipratropium [place] [Ipratropium [place] 0.03%] 1 spray EA NOSTRIL BID Famotidine [Pepcid] 40 mg PO BID Discharge Medication List Aspirin EC [Ecotrin Low Dose] 81 mg PO DAILY 05/15/22 [History] Finasteride [Proscar] 5 mg PO DAILY 05/15/22 [History] Tamsulosin [Flomax] 0.4 mg PO HS 05/15/22 [History] Empagliflozin [Jardiance] 5 mg PO DAILY 07/28/24 [History] Famotidine [Pepcid] 40 mg PO BID 07/28/24 [History] Ipratropium [place] [Ipratropium [place] 0.03%] 1 spray EA NOSTRIL BID 07/28/24 [History] Isosorbide Mononitrate ER [Imdur] 90 mg PO DAILY 07/28/24 [History] Metoprolol Succinate (ER) [Toprol XL] 12.5 mg PO DAILY 07/28/24 [History] Nitroglycerin Sl Tabs [Nitrostat] 0.4 mg SUBLINGUAL Q5M PRN 07/28/24 [History] Rosuvastatin [Crestor] 10 mg PO HS 07/28/24 [History] glipiZIDE [Glucotrol] 2.5 mg PO AC-BID 07/28/24 [History] Ranolazine [Ranexa] 500 mg PO Q12HR #60 tab 07/29/24 [Rx] Follow up Appointment(s)/Referral(s): Tyrell Olivo MD [STAFF PHYSICIAN] - 1 Week (Office will call patient with date and time of appointment) Joe Juan DO [Primary Care Provider] - 1-2 days Patient Instructions/Handouts: Chest Pain ([facility]) Activity/Diet/Wound Care/Special Instructions: Please see PCP and Tool Polishing Machine Operator for follow up Discharge Disposition: HOME SELF-CARE
[2024-07-29] MEDS ORDERED: ATORVASTATIN 20 MG TAB PO SCH (21:00)
[2024-07-29] MEDS ORDERED: TAMSULOSIN 0.4 MG CAP.ER.24H PO SCH (21:00)
== END 2024-07-29 15:45 | disposition home or self-care (01) ==
LOC: EC 11:59 → 6NMEDSUR 13:26
PROVIDERS: ADMIT Student in an Organized Health Care Education/Training Program; ATTEND Student in an Organized Health Care Education/Training Program
DX: R07.9 Chest pain, unspecified (principal); E11.65 Type 2 diabetes mellitus with hyperglycemia; I13.0 Hypertensive heart and chronic kidney disease with heart failure and stage 1 through stage 4 chronic kidney disease, or unspecified chronic kidney disease; I50.22 Chronic systolic (congestive) heart failure; N18.4 Chronic kidney disease, stage 4 (severe); E11.22 Type 2 diabetes mellitus with diabetic chronic kidney disease; E11.40 Type 2 diabetes mellitus with diabetic neuropathy, unspecified; I25.5 Ischemic cardiomyopathy; E78.00 Pure hypercholesterolemia, unspecified; I25.10 Atherosclerotic heart disease of native coronary artery without angina pectoris; I25.2 Old myocardial infarction; F17.290 Nicotine dependence, other tobacco product, uncomplicated; Z85.21 Personal history of malignant neoplasm of larynx; Z95.5 Presence of coronary angioplasty implant and graft; Z79.02 Long term (current) use of antithrombotics/antiplatelets; Z79.51 Long term (current) use of inhaled steroids; Z79.84 Long term (current) use of oral hypoglycemic drugs; Z79.82 Long term (current) use of aspirin; Z79.899 Other long term (current) drug therapy
CPT/HCPCS: 99285; 36415; 94760; 93005; 93306; 80061; 80053; 83735; 84484; 85025; 85610; 85730; 83036; 71046; G0378 ×2; S0138; Q9957